=== PATIENT | female | born 1930 | race Caucasian/White ===

== ENCOUNTER 2017-10-08 10:12 | Emergency (ER) | payer MEDICARE, BC, MEDICAID ==
[2017-10-08] MEDS ORDERED: ACETAMINOPHEN 325 MG TABLET PO ONE (10:52)
--- NOTE | 2017-10-08 11:33 | ER Document Report ---
ED Neck/Back Problem - General Chief Complaint: Back Pain Stated Complaint: BACK PAIN Time Seen by Provider: 10/08/17 10:51 Notes: The patient is a 87-year-old female, past medical history chronic back pain, presents with mild lower back pain for a few days after she tried to open the blinds in her house the wrong way. She called her orthopedic surgeon has an appointment next week. She is taking Tylenol with some relief of her symptoms, but she is concerned because now she is having some tingling down her right leg. She denies change in bowel or bladder, difficulty walking, fevers, abdominal pain or saddle anesthesia. TRAVEL OUTSIDE OF THE [place] IN LAST 30 DAYS: No - Related Data Allergies/Adverse Reactions: No Known Allergies Allergy (Verified 02/08/15 19:01) Past Medical History - General Information source: Patient - Social History Smoking Status: Never Smoker Chew tobacco use (# tins/day): No Frequency of alcohol use: None Drug Abuse: None Family History: Reviewed & Not Pertinent Patient has suicidal ideation: No Patient has homicidal ideation: No - Past Medical History Cardiac Medical History: Reports: Hx Heart Attack - stents, Hx Hypercholesterolemia Renal/ Medical History: Denies: Hx Peritoneal Dialysis Past Surgical History: Reports: Hx Cardiac Surgery - stents placed, Hx Orthopedic Surgery - Immunizations Immunizations up to date: Yes Hx Diphtheria, Pertussis, Tetanus Vaccination: Yes Review of Systems - Review of Systems Notes: REVIEW OF SYSTEMS: CONSTITUTIONAL: -fevers, -chills EENT: -eye pain, -difficulty swallowing, -nasal congestion CARDIOVASCULAR: -chest pain, -syncope. RESPIRATORY: -cough, -SOB GASTROINTESTINAL: -abdominal pain, -nausea, -vomiting, -diarrhea GENITOURINARY: -dysuria, -hematuria MUSCULOSKELETAL: +back pain, -neck pain SKIN: -rash or skin lesions. HEMATOLOGIC: -easy bruising or bleeding. LYMPHATIC: -swollen, enlarged glands. NEUROLOGICAL: -altered mental status or loss of consciousness, -headache, - neurologic symptoms PSYCHIATRIC: -anxiety, -depression. ALL OTHER SYSTEMS REVIEWED AND NEGATIVE. Physical Exam - Vital signs Vitals: Temp Pulse Resp BP Pulse Ox 98.0 F 81 16 137/65 H 94 10/08/17 10:32 10/08/17 10:32 10/08/17 10:32 10/08/17 10:32 10/08/17 10:32 - Notes Notes: PHYSICAL EXAMINATION: GENERAL: Well-appearing, well-nourished and in no acute distress. HEAD: Atraumatic, normocephalic. EYES: Pupils equal round and reactive to light, extraocular movements intact, sclera anicteric, conjunctiva are normal. ENT: nares patent, oropharynx clear without exudates. Moist mucous membranes. NECK: Normal range of motion, supple without lymphadenopathy LUNGS: Breath sounds clear to auscultation bilaterally and equal. No wheezes rales or rhonchi. HEART: Regular rate and rhythm without murmurs ABDOMEN: Soft, nontender, normoactive bowel sounds. No guarding, no rebound. No masses appreciated. EXTREMITIES: Normal range of motion, no pitting or edema. No cyanosis. Strong distal pulses. BACK: No midline tenderness. No parapsinal or lower back tenderness. NEUROLOGICAL: Cranial nerves grossly intact. Normal speech, normal gait. Normal sensory and motor exams. PSYCH: Normal mood, normal affect. SKIN: Warm, Dry, normal turgor, no rashes or lesions noted. Course - Re-evaluation Re-evalutation: Patient with a mild exacerbation of her chronic back pain. She has an appointment with her orthopedic surgeon next week. Instructed her about safe medications due to her age and she understands. There are no red flag signs for low back pain at this time she is able to ambulate. - Vital Signs Vital signs: Temp Pulse Resp BP Pulse Ox 97.9 F 77 18 131/70 H 96 10/08/17 11:52 10/08/17 11:52 10/08/17 11:52 10/08/17 11:52 10/08/17 11:52 Discharge - Discharge Clinical Impression: Chronic back pain Qualifiers: Back pain location: low back pain Back pain laterality: unspecified Sciatica presence: without sciatica Qualified Code(s): M54.5 - Low back pain Condition: Stable Disposition: HOME, SELF-CARE Additional Instructions: Take 500 mg Tylenol every 4 hours to help with your back pain. If this doesn't work, use the Voltaren gel to help with any muscle aches. If this does not work and you can pinpoint a particular area that hurts, then you can use the Lidocaine patch. If this fails, then use Naprosyn 250 mg every 12 hours as needed. Follow-up with your orthopedic surgeon as scheduled next week. Return to the ER if you have any worsening symptoms or any other concerns. LOW BACK PAIN: Three out of every four people will have an episode of disabling back pain during their lifetime. Most commonly the pain is due to straining of the muscles and ligaments in the low back. Usual treatment includes: (1) Rest on a firm surface. Avoid lying on your stomach. (2) Ice pack the painful area. After a few days, gentle heat may be used intermittently to relax the area, or ice packs can be continued. (3) Medication may be needed -- muscle relaxers and antiinflammatory medicines are commonly used. (4) As the back improves, exercises are prescribed to strengthen the back and abdominal muscles. Your doctor will advise you on the proper care for your back at each stage in your recovery. You may be better in a few days -- or healing may take several weeks. If new symptoms of a "herniated disc" (radiation of pain, numbness, or tingling down the back of the leg or weakness in the leg) occur, you should be re-examined. Further testing may be necessary. MUSCLE RELAXERS: Muscle relaxing medications are usually prescribed for acute muscle spasm or injury to the neck and back. They are often combined with antiinflammatory pain medication for increased relief. You may stop the muscle relaxer when the pain and stiffness have improved. Start the medication again if spasms recur. Muscle relaxers may cause drowsiness, especially with the first dose. Do not operate machinery or drive while under the effects of the medication. Most muscle relaxers last up to 24 hours. Do not combine the medication with alcohol. ICE PACKS: Apply ice packs frequently against the painful area. Many different schedules are recommended, such as "20 minutes on, 20 minutes off" or "one hour ice, two hours rest." If you need to work, you may need to go longer between ice treatments. You should plan to have the area ice packed AT LEAST one fourth of the time. The ice should be applied over the wrap, tape, or splint, or over a layer of cloth -- not directly against the skin. Some ice bags have a built-in cloth and can be put directly on the skin. WARM PACKS: After approximately two days, apply gentle heat (such as a heating pad or hot water bottle) for about 20 to 30 minutes about every two hours -- at least four times daily. Warmth and elevation will help you make a more rapid recovery , and will ease the pain considerably. Do not use HOT heat, and never apply heat for longer than 30 minutes. The continuous heat can invisibly damage skin and muscles -- even when no burn is seen on the surface. Damaged muscles can make you MORE sore. FOLLOW-UP CARE: If you have been referred to a physician for follow-up care, call the physician s office for an appointment as you were instructed or within the next two days. If you experience worsening or a significant change in your symptoms, notify the physician immediately or return to the Emergency Department at any time for re-evaluation. Prescriptions: Diclofenac Sodium [Voltaren] 100 gm TP Q8H PRN #100 gel..gram. PRN Reason: Lidocaine [Lidoderm 5% (700 mg) Transdermal Patch] 1 patch TP DAILY #10 adh..patch Forms: Elevated Blood Pressure Referrals: MISAEL MACE FNP [Primary Care Provider] - Follow up as needed
[2017-10-08 11:53] VITALS: BP 131/70
== END 2017-10-08 11:53 | disposition home or self-care (01) ==
LOC: ER 10:12
DX: G89.29 Other chronic pain (principal); M54.5 Low back pain; E78.00 Pure hypercholesterolemia, unspecified; I25.2 Old myocardial infarction
CPT/HCPCS: 99283

== ENCOUNTER → 2018-05-26 | Outpatient (CLI) | payer MEDICARE, BC, MEDICAID ==
--- NOTE | 2018-05-26 16:07 | WOMENS IMAGING REPORT ---
EXAM DESCRIPTION: 3D SCREENING MAMMO BILAT COMPLETED DATE/TIME: 05/26/2018 2:25 pm REASON FOR STUDY: BILATERAL SCREENING MAMMO 3D/Z12.31 Z12.31 ENCNTR SCREEN MAMMOGRAM FOR MALIGNANT NEOPLASM OF RADHA COMPARISON: [id number] TECHNIQUE: Standard craniocaudal and mediolateral oblique views of each breast recorded using digita l acquisition and breast tomosynthesis. LIMITATIONS: None. FINDINGS: Findings present which are benign by mammographic criteria. No suspicious masses, calcifi cations or architectural distortion. Pertinent benign findings: Stable calcifications. Read with the assistance of CAD. .[facility] - R2 Cenova Version 1.3 .[facility] Imaging - R2 Cenova Version 1.3 .[facility] - R2 Cenova Version 2.4 .[facility] [place] - R2 Cenova Version 2.4 .[facility] - R2 M1 Armor Crewman Version 9.2 Benign mammographic findings may include one or more of the following: Smooth masses, popcorn/rim/co arse calcifications, asymmetries, post-procedure changes, and lesions with long-standing stability. IMPRESSION: BENIGN MAMMOGRAPHIC FINDINGS. BIRADS 2 BREAST DENSITY: b. There are scattered areas of fibroglandular density. BIRAD: 2 BENIGN FINDING(S) RECOMMENDATION: RECOMMENDATION: ROUTINE SCREENING COMMENT: The patient has been notified of the results by letter per SA requirements. Additional no tification policies are in place for contacting patient with suspicious or incomplete findings. Quality ID #[id number]: The [employer] recommends an annual screening mammogram for women aged 40 years or over. This facility utilizes a reminder system to ensure that all patients receive reminder letters, and/or direct phone calls for appointments. This includes reminders for routine scr eening mammograms, diagnostic mammograms, or other Breast Imaging Interventions when appropriate. Th is patient will be placed in the appropriate reminder system. The [employer] (ACR) has developed recommendations for screening MRI of the breast s in certain patient populations, to be used in conjunction with mammography. Breast MRI surveillanc e may be appropriate for women with more than 20% lifetime risk of developing breast cancer as deter mined by genetic testing, significant family history of the disease, or history of mantle radiation f or Hodgkins Disease. ACR Practice Guidelines 2008. DBT Technology DBT is a type of tomographic mammography. With conventional mammography, overlapping breast tissue ma y make lesions difficult to detect, even with good compression. DBT uses an x-ray tube that rotates a round the breast, taking images at different angles. These images are then combined to create thin sl ices of the breast that the radiologist can view as a 3D reconstruction. The [employer] unit can perform full-field digital mammograms (2D imaging); or DBT (3D imaging); or both, in a combination mode that quickly performs both the mammogram and the tomosynthesis scan while the breast is still compressed. PQRS 6045F: Fluoroscopic imaging is not utilized for breast tomosynthesis. TECHNICAL DOCUMENTATION: FINDING NUMBER: (1) ASSESSMENT: (1) JOB ID: [id number] [employer]- All Rights Reserved Reading location - IP/workstation name: [email or web address]
== END ==
LOC: WI 13:35
PROVIDERS: ATTEND Nurse Practitioner
DX: Z12.31 Encounter for screening mammogram for malignant neoplasm of breast (principal)
CPT/HCPCS: 77063; 77067

== ENCOUNTER 2019-03-28 20:03 | Observation (INO) | payer MEDICARE, BC, MEDICAID ==
--- NOTE | 2019-03-28 20:22 | ER Document Report ---
ED General - General Stated Complaint: DIZZINESS,UNEQUAL PUPILS Time Seen by Provider: 03/28/19 20:09 Notes: Patient is an 88-year-old female that comes to the emergency department for chief complaint of an episode that started about 1900 where she suddenly felt very lightheaded and unsteady on her feet. She states sitting down now she has no current symptoms, she denies focal numbness or weakness, she denies visual changes, she denies headache. She denies chest pain, shortness of breath, palpitations, nausea or vomiting. She is not on a blood thinner. She recently was started on tizanidine as a muscle relaxant for her back. She comes from home by EMS. She denies injury. Past medical history includes hypertension, hyperlipidemia, and she is on Lasix 20 mg daily, tramadol, and baby aspirin daily. She states she has not taken the baby aspirin recently. TRAVEL OUTSIDE OF THE [place] IN LAST 30 DAYS: No - Related Data Allergies/Adverse Reactions: No Known Allergies Allergy (Verified 03/28/19 22:22) Past Medical History - General Information source: Patient, Relative - daughter - Social History Smoking Status: Never Smoker Frequency of alcohol use: None Drug Abuse: None Lives with: Family Family History: Reviewed & Not Pertinent - Past Medical History Cardiac Medical History: Reports: Hx Heart Attack - stents, Hx Hypercholesterolemia Renal/ Medical History: Denies: Hx Peritoneal Dialysis Past Surgical History: Reports: Hx Cardiac Surgery - stents placed, Hx Orthopedic Surgery - Immunizations Immunizations up to date: Yes Hx Diphtheria, Pertussis, Tetanus Vaccination: Yes Review of Systems - Review of Systems Constitutional: See HPI EENT: No symptoms reported Cardiovascular: See HPI Respiratory: No symptoms reported Gastrointestinal: No symptoms reported Genitourinary: No symptoms reported Female Genitourinary: No symptoms reported Musculoskeletal: No symptoms reported Skin: No symptoms reported Hematologic/Lymphatic: No symptoms reported Neurological/Psychological: See HPI Physical Exam - Vital signs Vitals: Temp Pulse Resp BP Pulse Ox 97.8 F 85 19 126/85 H 94 03/28/19 20:03 03/28/19 20:03 03/28/19 20:03 03/28/19 20:03 03/28/19 20:03 - Notes Notes: GENERAL: Alert, interacts well. No acute distress. HEAD: Normocephalic, atraumatic. EYES: Pupils unequal (left is small but reactive, right is about twice the size but reactive). Extraocular movements intact. ENT: Oral mucosa moist, tongue midline. Oropharynx unremarkable. Airway patent. Nares patent, no nasal septal hematoma, TM's intact. NECK: Full range of motion. Supple. Trachea midline. LUNGS: Clear to auscultation bilaterally, no wheezes, rales, or rhonchi. No respiratory distress. HEART: Regular rate and rhythm. No murmur ABDOMEN: Soft, non-tender. Non-distended. EXTREMITIES: Moves all 4 extremities spontaneously. No edema, normal radial and dorsalis pedis pulses bilaterally. No cyanosis. BACK: no cervical, thoracic, lumbar midline tenderness. No saddle anesthesia, normal distal neurovascular exam. NEUROLOGICAL: Alert and oriented x3. Normal speech. Cranial nerves II through XII grossly intact. Patient can ambulate but she is unsteady. She does not have lateralizing or fall to one side however. Patient complains of dizziness when she stands. PSYCH: Normal affect, normal mood. SKIN: Warm, dry, normal turgor. No rashes or lesions noted. Course - Re-evaluation Re-evalutation: Patient complains of dizziness and unsteadiness when she stands. This is new for her. She is somewhat unsteady but she does not fall to one side. She can ambulate with assistance. She does not have localized neurological abnormality on my exam. However she does have unequal pupils with the right greater than the left. Daughter states she sees her all the time and this is new. Patient is unaware of this finding. She denies going to the risk officer or drying machine operator recently, at least not within the past month. She denies trauma. Chest x-ray, EKG, CBC, chemistry, troponin, coagulation studies without acute findings. CAT scan of the head unremarkable. Discussed with patient and daughter at bedside. Because of her easiness, unsteadiness, and reportedly new unequal pupils I discussed with Dr. Villegas and I will discuss with hospitalist for admission for MRI and additional evaluation. They state appreciation and agreement. Discussed with Dr. Lucas, patient will be admitted to [facility] observation. - Vital Signs Vital signs: Temp Pulse Resp BP Pulse Ox 97.8 F 61 21 H 117/60 95 03/28/19 20:03 03/29/19 02:00 03/29/19 00:31 03/29/19 00:31 03/29/19 00:31 - Laboratory Result Diagrams: 03/28/19 20:18 03/28/19 20:18 Laboratory results interpreted by me: 03/28/19 03/28/19 03/28/19 20:18 20:18 22:25 RDW 14.8 H Est GFR (MDRD) Non-Af 57 L Glucose 128 H Creatine Kinase 24 L Urine Blood SMALL H Ur Leukocyte Esterase LARGE H - EKG Interpretation by Me Additional EKG results interpreted by me: EKG shows sinus rhythm at a rate of 77, QTC of 417, normal axis, no T wave inversions or ST segment changes in consecutive leads. Discharge - Discharge Clinical Impression: Anisocoria, Lightheadedness, Imbalance Condition: Stable Disposition: ADMITTED OBSERVATION Admitting Provider: Shayy (Hospitalist) Unit Admitted: [facility]
[2019-03-28 20:26] LABS: ABSOLUTE EOSINOPHILS # (AUTO) 0.2 10^3/uL (0.0-0.6); ABSOLUTE MONOCYTES (AUTO) 0.5 10^3/uL (0.1-1.4); ABSOLUTE NEUT (AUTO) 4.8 10^3/uL (1.7-8.2); BASOPHILS % (AUTO) 0.5 % (0-2); EOSINOPHILS % (AUTO) 3.2 % (0-6); HEMATOCRIT 41.2 % (36.0-47.0); HEMOGLOBIN 13.9 g/dL (12.0-15.5); LYMPHOCYTES % (AUTO) 26.1 % (13-45); MEAN CORPUSCULAR HEMOGLOBIN 31.4 pg (27.0-33.4); MEAN CORPUSCULAR HGB CONC 33.9 g/dL (32.0-36.0); MEAN CORPUSCULAR VOLUME 93 fl (80-97); PLATELET COUNT 179 10^3/uL (150-450); RED BLOOD COUNT 4.44 10^6/uL (3.72-5.28); RED CELL DISTRIBUTION WIDTH 14.8 % (11.5-14.0); SEGMENTED NEUTROPHILS % (AUTO) 63.2 % (42-78); TOTAL CELLS COUNTED % (AUTO) 100 %; WHITE BLOOD COUNT 7.5 10^3/uL (4.0-10.5)
[2019-03-28 20:34] LABS: INTERNATIONAL RATION (INR) 1.06; PROTHROMBIN TIME 13.8 SEC (11.4-15.4)
[2019-03-28 20:35] LABS: PARTIAL THROMBOPLASTIN TIME 27.2 SEC (23.5-35.8)
[2019-03-28 20:51] LABS: ALBUMIN 3.6 g/dL (3.5-5.0); ALKALINE PHOSPHATASE 107 U/L (38-126); ANION GAP 6 (5-19); ASPARTATE AMINO TRANSFERASE 20 U/L (14-36); BILIRUBIN,DIRECT 0.1 mg/dL (0.0-0.4); BILIRUBIN,TOTAL 1.2 mg/dL (0.2-1.3); BLOOD UREA NITROGEN 12 mg/dL (7-20); CALCIUM 9.5 mg/dL (8.4-10.2); CARBON DIOXIDE 30 mmol/L (22-30); CHLORIDE 104 mmol/L (98-107); CREATINE KINASE 24 U/L (30-135); GLUCOSE 128 mg/dL (75-110); POTASSIUM 3.8 mmol/L (3.6-5.0); TOTAL PROTEIN 6.4 g/dL (6.3-8.2)
--- NOTE | 2019-03-28 21:11 | ER Document Report ---
ED NIH Stroke Scale - NIH Stroke Scale When completed:: Before Alteplase *: 1. NIH scale should be completed with appropriate accompanying assessment tools. *: 2. The NIH should reflect what the patient is capable of doing and should not be coached by the clinician. 1a. Level of Consciousness: 0=Alert;keenly responsive -: 1=Drowsy -: 2=Obtunded -: 3=Coma/unresponsive or reflex to noxious stimuli. 1a. Responses: 0 1b. Orientation Questions: a. What month is it? -: b. How old are you? -: 0=Answers both questions correctly. -: 1=Answers one question correctly or patient is intubated or has orotracheal trauma. -: 2=Answers neither question correctly. 1b. Responses: 0 1c. Response to commands: a. Open and close eyes? -: b. Value Analysis Coordinator and release hand? -: Credit is given despite weakness. Demonstration of task is permitted. Substitute command if hands cannot be used. -: 0=Performs both tasks correctly -: 1=Performs one task correctly -: 2=Performs neither task correctly 1c. Responses: 0 2. Gaze: Establish eye contact and instruct patient to "Follow my finger" -: 0=Normal -: 1=Partial gaze palsy. Gaze is abnormal in one or both eyes, but where forced deviation or total gaze paresis is not present. -: 2=Forced deviation or total gaze paresis. 2. Responses: 0 3. Visual Caruso: Sees fingers in all four quadrants. -: 0=No visual loss. -: 1=Partial hemianopsia. -: 2=Complete hemianopsia. -: 3=Bilateral hemianopsia (including Cortical blindness) 3. Responses: 0 4. Facial Movement: Instruct patient to: -: a. Show me your teeth -: b. Raise your eyebrows -: c. Close your eyes -: d. Smile -: 0=Normal symmetrical movement -: 1=Minor paralysis (flattened nasolabial fold, asymmetry on smiling). -: 2=Partial paralysis (total or near total paralysis of lower face). -: 3=Complete paralysis of upper and lower face 4. Responses: 0 5. Motor functions (left arm): Alternate sides and extend each arm with palms down (90 degrees if sitting or 45 degrees for supine). -: 0=No drift;limb holds for full 10 seconds. -: 1=Drift; limb holds but drifts down before full 10 seconds, but does not hit bed. -: 2=Some effort against gravity; limb cannot get to or maintain position. -: 3=No effort against gravity; limb falls. -: 4=No movement. -: UN=Amputation, joint fusion, explain in comments. 5. Responses (left arm): 0 5. Motor Functions (right arm): Alternate sides and extend each arm with palms down (90 degrees if sitting or 45 degrees for supine). -: 0=No drift;limb holds for full 10 seconds. -: 1=Drift; limb holds but drifts down before full 10 seconds, but does not hit bed. -: 2=Some effort against gravity; limb cannot get to or maintain position. -: 3=No effort against gravity; limb falls. -: 4=No movement. -: UN=Amputation, joint fusion, explain in comments. 5. Responses (right arm): 0 6. Motor Functions (left leg): With patient lying supine, alternate sides and extend each leg (30 degrees always while supine). -: 0=No drift, leg holds position for full 5 seconds -: 1=Drift; leg falls before full 5 seconds but does not hit bed. -: 2=Some effort against gravity, leg falls to bed but some effort against gravity. -: 3=No effort against gravity, leg falls to bed immediately. -: 4=No movement. -: UN=Amputation, joint fusion; explain in comments. 6. Responses (left leg): 0 6. Motor Functions (right leg): With patient lying supine, alternate sides and extend each leg (30 degrees always while supine). -: 0=No drift, leg holds position for full 5 seconds -: 1=Drift; leg falls before full 5 seconds but does not hit bed. -: 2=Some effort against gravity, leg falls to bed but some effort against gravity. -: 3=No effort against gravity, leg falls to bed immediately. -: 4=No movement. -: UN=Amputation, joint fusion; explain in comments. 6. Responses (right leg): 0 7. Limb Ataxia: With eyes open instruct patient to: -: a. "Touch your finger to your nose". -: b. "Touch your heel to your oliveira" -: 0=Absent -: 1=Present in one limb. -: 2=Present in two limbs. -: UN=Amputation or joint fusion; explain in comments. 7. Responses: 0 8. Sensory: Test sensation using pinprick or noxious stimuli. Test as many body parts as possible. -: 0=Normal;no sensory loss -: 1=Mile to moderate sensory loss (patient feels pin prick but is less sharp on affected side). -: 2=Severe or total sensory loss. 8. Responses: 0 9. Best Language: Instruct patient to: -: a. "Describe what you see in this picture." -: b. "Name the items in this picture." -: c. "Read these sentences." -: 0=No aphasia, normal -: 1=Mild to moderate aphasia. -: 2=Severe aphasia -: 3=Mute, global aphasia, no usable speech or auditory comprehension. 9. Responses: 0 10. Articulation, Dysarthia: Instruct patient to: -: "Read these words" or "Repeat these words" -: 0=Normal -: 1=Mild to moderate; patient may slur some words but can be understood without difficulty. -: 2=Severe; patients speech so slurred as to be unintelligible in the absence of dysphasia. -: UN=Intubated or other physical barrier, explain in comments. 10. Responses: 0 11. Extinction or inattention: 0=No abnormality -: 1= Visual, tactile, auditory, spatial, or personal inattention or extinction to bilateral simulation in one or the sensory modalities. -: 2=Profound johana-inattention or johana-inattention to more than one modality; does not recognize own hand. 11. Responses: 0 Total Score: 0
[2019-03-28 21:23] LABS: CREATINE KINASE MB < 0.22 ng/mL (<4.55)
[2019-03-28 21:24] LABS: TROPONIN I < 0.012 ng/mL
--- NOTE | 2019-03-28 21:31 | RADIOLOGY REPORT (SQ) ---
EXAM DESCRIPTION: CT HEAD WITHOUT IV CONTRAST COMPLETED DATE/TME: 03/28/2019 20:15 CLINICAL HISTORY: 88 years, Female, unsteady gait, right pupil greater than left COMPARISON: None. TECHNIQUE: Noncontrast CT of head was performed. Coronal and sagittal reformations were created. Images stored on PACS. All CT scanners at this facility use dose modulation, iterative reconstruction, and/or weight based dosing when appropriate to reduce radiation dose to as low as reasonably achievable (ALARA). [facility]: Dose Right [facility]: CareDose [facility]: Dose Right [facility]: Teradose 4D [facility]: [id number] LIMITATIONS: None. FINDINGS: Evaluation of the brain parenchyma reveals mild periventricular and patchy subcortical white matter low attenuation. No acute intracranial hemorrhage, mass effect, or extra-axial fluid is seen. The ventricles and sulcal spaces are mildly enlarged. Globes and orbits show no acute abnormality. The nasal septum is mildly deviated towards the right. Otherwise, paranasal sinuses and mastoid air cells are clear. No depressed skull fractures. Calcifications are evident about the parasellar carotid arteries. IMPRESSION: No acute intracranial abnormality. Mild chronic microvascular ischemic change and generalized atrophy. TECHNICAL DOCUMENTATION: Quality ID # [id number]: Final reports with documentation of one or more dose reduction techniques (e.g., Automated exposure control, adjustment of the mA and/or kV according to patient size, use of iterative reconstruction technique) copyright 2011 [employer]- All Rights Reserved
--- NOTE | 2019-03-28 21:33 | RADIOLOGY REPORT (SQ) ---
EXAM DESCRIPTION: XR CHEST 1 VIEW COMPLETED DATE/TME: 03/28/2019 20:15 CLINICAL HISTORY: 88 years, Female, CVA workup COMPARISON: None. NUMBER OF VIEWS: One TECHNIQUE: Single frontal view of the chest was obtained portably LIMITATIONS: None. FINDINGS: Cardiac and mediastinal contours are normal in appearance. Bandlike opacity is noted about the left lung base, likely atelectasis or scar. Suspect calcified granuloma located within the right lung base. Lungs are otherwise clear. No pleural effusion or pneumothorax. A few compression deformities are noted about the mid to lower thoracic vertebral bodies, age indeterminate and incompletely assessed on this single frontal radiograph. IMPRESSION: No acute disease within the chest. Compression deformities involving a few mid to lower thoracic vertebral bodies, incompletely assessed on this frontal projection of the chest. copyright 2010 [email or web address]- All Rights Reserved
[2019-03-28 22:42] LABS: APPEARANCE,URINE SLIGHTLY-CLOUDY; BILIRUBIN,URINE NEGATIVE (NEGATIVE); COLOR,URINE YELLOW; GLUCOSE, URINE NEGATIVE (NEGATIVE); KETONES,URINE NEGATIVE (NEGATIVE); LEUKOCYTE ESTERASE,URINE LARGE (NEGATIVE); NITRITE,URINE NEGATIVE (NEGATIVE); PROTEIN,URINE NEGATIVE (NEGATIVE); URINE SPECIFIC GRAVITY 1.014; UROBILINOGEN,URINE NEGATIVE mg/dL (<2.0)
[2019-03-29] MEDS ORDERED: ACETAMINOPHEN 325 MG TABLET PO PRN (00:43)
[2019-03-29] MEDS ORDERED: DOCUSATE SODIUM 100 MG CAPSULE PO PRN (00:43)
[2019-03-29] MEDS ORDERED: TEMAZEPAM 15 MG CAPSULE PO PRN (00:43)
[2019-03-29] MEDS ORDERED: MAGNESIUM HYDROXIDE SUSP 30 ML UDCUP PO PRN (00:43)
[2019-03-29] MEDS ORDERED: ONDANSETRON HCL INJ/PF 4 MG/2 ML SDV IV PRN (00:43)
[2019-03-29] MEDS ORDERED: ONDANSETRON 4 MG TAB.RAPDIS PO PRN (00:43)
--- NOTE | 2019-03-29 00:43 | PDOC H&P ---
History of Present Illness Admission Date/PCP: 03/28/19 23:11 ALVA IBARRA Patient complains of: Dizziness History of Present Illness: JENS GOLDSTEIN is a 88 year old female who presented to the emergency room with the acute onset of dizziness at 7 PM on the evening of admission. She admits to the sudden onset of a dizzy sensation when she started to arise from her chair, that has persisted since onset. She describes a dizzy sensation as a feeling of being off balance as if she were going to fall but does not feel lightheaded or as if she might lose consciousness. The sensation is relieved by rest and holding still and worsened by sitting up forward or standing. She denies acc ompanying or associated signs and symptoms. She denies prior similar episodes and has not identified any other aggravating or ameliorating factors for her dizziness. In the emergency room she was found to have a negative CT scan of the head. Because of persistence of her symptoms patient was admitted to observation status for further evaluation and treatment. Past Medical History Cardiac Medical History: Reports: Coronary Artery Disease, Myocardial Infarction - stents, Hyperlipidema, Hypertension Denies: Atrial Fibrillation, Congestive Heart Failure, DVT, Pulmonary Embolism Pulmonary Medical History: Denies: Asthma, Chronic Obstructive Pulmonary Disease (COPD) EENT Medical History: Reports: Cataracts, Eyes - Glaucoma Denies: Ears - Hearing aids Neurological Medical History: Denies: Hemorrhagic CVA, Ischemic CVA, Seizures Endocrine Medical History: Denies: Diabetes Mellitus Type 1, Diabetes Mellitus Type 2, Hyperthyroidism, Hypothyroidism, Obesity Renal/ Medical History: Denies: Chronic Kidney Disease, Nephrolithiasis Malignancy Medical History: Reports: None GI Medical History: Denies: Cirrhosis, Crohn's Disease, Hepatitis, Ulcerative Colitis Musculoskeltal Medical History: Reports: Arthritis - 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 Denies: Fibromyalgia, Gout Skin Medical History: Denies: Eczema, Psoriasis Psychiatric Medical History: Denies: Alcohol Dependency, Substance Abuse, Tobacco Dependency Traumatic Medical History: Reports: None Hematology: Denies: Anemia, Bleeding Tendencies Infectious Medical History: Reports: None Past Surgical History Past Surgical History: Reports: Cardiac Catheterization, Coronary Stent - X 4, Hip Replacement, Orthopedic Surgery - Lumbar disc removal and replacement X 2, left femur fx repair, Other - Glaucoma surgery, bilateral cataract surgery Social History Information Source: Patient Lives with: Family Smoking Status: Former Smoker Frequency of Alcohol Use: None Hx Recreational Drug Use: No Drugs: None Hx Prescription Drug Abuse: No - Advance Directive Resuscitation Status: Full Code Surrogate healthcare decision maker:: Chuyita Gutierrez Family History Family History: Arthritis, CAD, Other - Congestive heart failure, polycythemia, dementia. denies: CVA, DM, Hypertension, Malignancy Parental Family History Reviewed: Yes Children Family History Reviewed: No Sibling(s) Family History Reviewed.: Yes Medication/Allergy Home Medications: Atorvastatin Calcium [Lipitor] 80 mg PO QHS 03/28/19 Cholecalciferol (Vitamin D3) [Vitamin D3 1000 Unit Tablet] 1,000 unit PO DAILY 03/28/19 Furosemide [Lasix 20 mg Tablet] 20 mg PO QAM PRN 03/28/19 Metoprolol Succinate [Toprol Xl 25 mg Tab.sr] 25 mg PO DAILY 03/28/19 Tizanidine HCl 4 mg PO TID 03/28/19 Tramadol HCl [Ultram] 50 mg PO Q6HP PRN 03/28/19 Allergies/Adverse Reactions: No Known Allergies Allergy (Verified 03/28/19 22:22) Review of Systems Constitutional: ABSENT: chills, fever(s), headache(s) Eyes: ABSENT: visual disturbances, other - Ocular pain Ears: ABSENT: hearing changes, other - Ear pain Nose, Mouth, and Throat: ABSENT: mouth pain, sore throat Cardiovascular: ABSENT: chest pain, palpitations Respiratory: ABSENT: cough, dyspnea Gastrointestinal: ABSENT: abdominal pain, constipation, diarrhea, nausea, vomiting Genitourinary: ABSENT: dysuria, hematuria Integumentary: ABSENT: diaphoresis, pruritus, rash Neurological: PRESENT: dizziness, vertigo. ABSENT: confusion, convulsions, focal weakness, memory loss, syncope Psychiatric: ABSENT: anxiety, depression Endocrine: ABSENT: cold intolerance, heat intolerance Hematologic/Lymphatic: ABSENT: easy bleeding, easy bruising Allergic/Immunologic: ABSENT: seasonal rhinorrhea Physical Exam Vital Signs: Temp Pulse Resp BP Pulse Ox 18 133/59 H 94 03/28/19 22:01 03/28/19 22:01 03/28/19 22:01 General appearance: PRESENT: no acute distress, cooperative Head exam: PRESENT: atraumatic, normocephalic Eye exam: PRESENT: conjunctiva pink, EOMI, nystagmus - Mild nystagmus with fast components to the right and upward, scleral icterus. ABSENT: conjunctival injection, PERRLA - Mild anisocoria noted right pupil is 1 to 2 mm larger than left status post cataract excision and lens reimplantation as well as other eye surgeries Mouth exam: PRESENT: dry mucosa, neck supple Neck exam: ABSENT: thyromegaly, tracheal deviation Respiratory exam: PRESENT: clear to auscultation benson, symmetrical, unlabored Cardiovascular exam: PRESENT: RRR. ABSENT: clicks, gallop, rubs Pulses: PRESENT: normal radial pulses, normal dorsalis pedis pul Vascular exam: PRESENT: normal capillary refill. ABSENT: pallor GI/Abdominal exam: PRESENT: normal bowel sounds, soft Rectal exam: PRESENT: deferred Extremities exam: ABSENT: joint swelling, pedal edema Musculoskeletal exam: ABSENT: deformity, dislocation Neurological exam: PRESENT: alert, oriented to person, oriented to place, oriented to time, oriented to situation, CN II-XII grossly intact - With the exception of anisocoria as noted above. ABSENT: motor sensory deficit Psychiatric exam: PRESENT: appropriate affect, normal mood Skin exam: PRESENT: dry, intact, warm. ABSENT: jaundice, rash, urticaria Results Laboratory Results: 03/28/19 20:18 03/28/19 20:18 03/28/19 03/28/19 03/28/19 20:18 20:18 22:25 WBC 7.5 RBC 4.44 Hgb 13.9 Hct 41.2 MCV 93 MCH 31.4 MCHC 33.9 RDW 14.8 H Plt Count 179 Seg Neutrophils % 63.2 Sodium 140.4 Potassium 3.8 Chloride 104 Carbon Dioxide 30 Anion Gap 6 BUN 12 Creatinine 0.93 Est GFR ( Amer) > 60 Glucose 128 H Calcium 9.5 Total Bilirubin 1.2 AST 20 Alkaline Phosphatase 107 Total Protein 6.4 Albumin 3.6 Urine Color YELLOW Urine Appearance SLIGHTLY-CLOUDY Urine pH 5.0 Ur Specific [place] 1.014 Urine Protein NEGATIVE Urine Glucose (UA) NEGATIVE Urine Ketones NEGATIVE Urine Blood SMALL H Urine Nitrite NEGATIVE Ur Leukocyte Esterase LARGE H Urine WBC (Auto) 74 Urine RBC (Auto) 5 03/28/19 03/28/19 20:18 20:18 Creatine Kinase 24 L CK-MB (CK-2) < 0.22 Troponin I < 0.012 Impressions: Chest X-Ray 03/28/19 20:15 IMPRESSION: No acute disease within the chest. Compression deformities involving a few mid to lower thoracic vertebral bodies, incompletely assessed on this frontal projection of the chest. copyright 2010 [employer]- All Rights Reserved Head CT 03/28/19 20:15 IMPRESSION: No acute intracranial abnormality. Mild chronic microvascular ischemic change and generalized atrophy. TECHNICAL DOCUMENTATION: Quality ID # 436: Final reports with documentation of one or more dose reduction techniques (e.g., Automated exposure control, adjustment of the mA and/or kV according to patient size, use of iterative reconstruction technique) copyright 2010 [employer]- All Rights Reserved Assessment and Plan - Diagnosis (1) Vertigo Is this a current diagnosis for this admission?: Yes Plan: Patient will be placed in observation status and an MRI of the head without contrast to be performed in the morning. In the interim patient will be treated with a transdermal scopolamine patch to make an effort at alleviating her vertigo. Neurochecks will be performed every 4 hours. (2) Hypertension Qualifiers: Hypertension type: essential hypertension Qualified Code(s): I10 - Essential (primary) hypertension Is this a current diagnosis for this admission?: Yes Plan: Patient will be continued on her usual antihypertensive medications and her blood pressure will be checked on a regular basis throughout her hospital course.. (3) Hyperlipidemia Qualifiers: Hyperlipidemia type: unspecified Qualified Code(s): E78.5 - Hyperlipidemia, unspecified Is this a current diagnosis for this admission?: Yes Plan: A lipid profile will be obtained to assess the patient's current lipid therapy. Patient will be continued on her current therapeutic regiment and a cardiac diet. (4) Coronary artery disease Qualifiers: Coronary Disease-Associated Artery/Lesion type: [place] artery [place] vs. transplanted heart: [place] heart Associated angina: without angina Qualified Code(s): I25.10 - Atherosclerotic heart disease of [place] coronary artery without angina pectoris Is this a current diagnosis for this admission?: Yes Plan: Patient will be continued on her usual cardiac medical regimen. She will be observed on telemetry throughout her hospital course. - Time Time Spent with patient: 35 or more minutes Medications reviewed and adjusted accordingly: Yes Anticipated discharge: Home Within: within 24 hours - Inpatient Certification Based on my medical assessment, after consideration of the patient's comorbidities, presenting symptoms, or acuity I expect that the services needed warrant INPATIENT care.: No I certify that my determination is in accordance with my understanding of Medicare's requirements for reasonable and necessary INPATIENT services [42 CFR 412.3e].: No Medical Necessity: Need Close Monitoring Due to Risk of Patient Decompensation, Need for Neurological Checks, Risk of Complication if Not Cared For in Hospital
[2019-03-29] MEDS ORDERED: FUROSEMIDE 20 MG TABLET PO PRN (00:47)
[2019-03-29] MEDS ORDERED: TRAMADOL HCL 50 MG TABLET PO PRN (00:47)
[2019-03-29 05:30] LABS: CHOLESTEROL 104.04 mg/dL (0-200); TRIGLYCERIDES 86 mg/dL (<150)
[2019-03-29 05:41] LABS: DIRECT LDL 49 mg/dL (<100)
[2019-03-29] MEDS ORDERED: SCOPOLAMINE HYDROBROMIDE 1.5 MG PATCH.TD72 TD ONE (06:00)
[2019-03-29] MEDS: HEPARIN SOD (PORCINE) 5,000 UNIT/ML 1 ML VIAL SUBCUT SCH ×2 (06:30→14:24)
--- NOTE | 2019-03-29 08:15 | EKG REPORT ---
SEVERITY:- NORMAL ECG - SINUS RHYTHM : Confirmed by: Caitlin Barlow MD 29-Mar-2019 08:14:43
[2019-03-29] MEDS ORDERED: FAMOTIDINE 20 MG TABLET PO SCH (10:00)
[2019-03-29] MEDS ORDERED: METOPROLOL SUCCINATE 25 MG TAB.SR.24H PO SCH (10:00)
[2019-03-29] MEDS ORDERED: CHOLECALCIFEROL (D3) 1,000 UNIT (25 MCG) TABLET PO SCH (10:00)
[2019-03-29] MEDS ORDERED: CLOPIDOGREL BISULFATE 75 MG TABLET PO SCH (10:00)
--- NOTE | 2019-03-29 10:12 | RADIOLOGY REPORT (SQ) ---
EXAM DESCRIPTION: MRI HEAD WITHOUT COMPLETED DATE/TIME: 03/29/2019 9:58 am REASON FOR STUDY: acute vertigo E78.5 HYPERLIPIDEMIA, UNSPECIFIED COMPARISON: 02/25/2019 TECHNIQUE: Multiplanar imaging includes non-contrasted T1, T2, FLAIR, and Diffusion with ADC map seq uences. Images stored on PACS. LIMITATIONS: None. FINDINGS: ANATOMY: No anomalies. Normal vascular flow voids. Pituitary fossa normal. CSF SPACES: Normal in size and contour. No hemorrhage. CEREBRUM: A few high-signal intensity lesions scattered throughout the white matter on FLAIR imaging with distribution suggesting chronic micro-vascular ischemic change. Sulci and gyri normal in size a nd contour. No evidence of hemorrhage, mass or extraaxial fluid collection. POSTERIOR FOSSA: No signal alteration. No hemorrhage. No edema, masses or mass effect. Internal ricardo tory canals, cerebello-pontine angles, mastoids normal. DIFFUSION: Negative for acute or sub-acute infarction. ORBITS: No masses. Globes normal. PARANASAL SINUSES: No fluid levels. Mucosa normal. OTHER: No other significant finding. IMPRESSION: MINIMAL MICROVASCULAR ISCHEMIC CHANGE. OTHERWISE NORMAL STUDY. EVIDENCE OF ACUTE STROKE: NO. TECHNICAL DOCUMENTATION: JOB ID: [id number] [employer]- All Rights Reserved Reading location - IP/workstation name: [email or web address]
[2019-03-29 16:08] VITALS: BP 126/85
--- NOTE | 2019-03-29 17:05 | PDOC DISCHARGE SUMMARY ---
General - Admit/Disc Date/PCP Admission Date/Primary Care Provider: 03/28/19 23:11 MISAEL MACE, [employer] Discharge Date: 03/29/19 - Discharge Diagnosis (1) Lightheadedness Is this a current diagnosis for this admission?: Yes Summary: Suspected to be due to combination of her chronic medications along with some pain medication that she received for neck pain. MRI of the brain was normal. Orthostatics were unremarkable. The only time it happens is when she stands up, but she was able to stand up without incident here. 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 It is very subtle with the right eye being slightly more dilated than the left. No one apparently has noticed it before, at least no one is said anything to the family. As previously noted, MRI was negative. (3) Hypertension Is this a current diagnosis for this admission?: Yes Summary: This was well-controlled on her home medications. - Additional Information Resuscitation Status: Full Code Discharge Diet: Cardiac Discharge Activity: Activity As Tolerated, Balance Activity w/Rest, Supervised Activity Home Medications: Atorvastatin Calcium [Lipitor] 80 mg PO QHS 03/28/19 Cholecalciferol (Vitamin D3) [Vitamin D3 1000 Unit Tablet] 1,000 unit PO DAILY 03/28/19 Furosemide [Lasix 20 mg Tablet] 20 mg PO QAMP PRN 03/28/19 Metoprolol Succinate [Toprol Xl 25 mg Tab.sr] 25 mg PO DAILY 03/28/19 Tizanidine HCl 4 mg PO TIDP PRN 03/28/19 Tramadol HCl [Ultram] 50 mg PO Q6HP PRN 03/28/19 Aspirin [Adult Low Dose Aspirin EC] 81 mg PO DAILY 03/29/19 History of Present Illness History of Present Illness: JENS GOLDSTEIN is a 88 year old female who presented to the emergency room with the acute onset of dizziness at 7 PM on the evening of admission. She admits to the sudden onset of a dizzy sensation when she started to arise from her chair, that has persisted since onset. She describes a dizzy sensation as a feeling of being off balance as if she were going to fall but does not feel lightheaded or as if she might lose consciousness. The sensation is relieved by rest and holding still and worsened by sitting up forward or standing. She denies accompanying or associated signs and symptoms. She denies prior similar episodes and has not identified any other aggravating or ameliorating factors for her dizziness. In the emergency room she was found to have a negative CT scan of the head. Because of persistence of her symptoms patient was admitted to observation status for further evaluation and treatment. Hospital Course Hospital Course: MRI of the brain was normal. Her vital signs were excellent. Orthostatic blood pressures did not change very much. She had been given some tramadol and some Zanaflex for some neck pain associated with the condition is being treated as an outpatient. We suspect that this was a combination of some of her usual home medications along with the addition of these 2 new medicines. We held off on her medications here and she was asymptomatic for us. She was cautioned to be very careful with position changes and with use of her medications. She verbalized her understanding. Her labs and examination were reassuring and she was discharged in good condition. Physical Exam Vital Signs: Temp Pulse Resp BP Pulse Ox 98.1 F 68 18 126/85 H 98 03/29/19 16:06 03/29/19 16:06 03/29/19 16:06 03/29/19 16:06 03/29/19 16:06 Intake & Output 03/28/19 03/29/19 03/30/19 06:59 06:59 06:59 Intake Total 100 Balance 100 Weight 51.8 kg General appearance: PRESENT: no acute distress, cooperative Eye exam: PRESENT: other - She had a very subtle anisocoria with the right iris being slightly more dilated than the left, 1 to 2 mm at most Respiratory exam: PRESENT: clear to auscultation benson, symmetrical, unlabored. ABSENT: accessory muscle use, chest wall tenderness, prolonged expiratory phas, rales, rhonchi, tachypnea, wheezes Cardiovascular exam: PRESENT: RRR, +S1, +S2 Pulses: PRESENT: normal carotid pulses Vascular exam: PRESENT: normal capillary refill GI/Abdominal exam: PRESENT: normal bowel sounds, soft. ABSENT: distended, gu arding, rebound, tenderness Extremities exam: ABSENT: clubbing, pedal edema Musculoskeletal exam: PRESENT: normal inspection. ABSENT: deformity Neurological exam: PRESENT: alert, awake, oriented to person, oriented to place, oriented to time, oriented to situation Psychiatric exam: PRESENT: appropriate affect, normal mood Skin exam: PRESENT: dry, warm Results Laboratory Results: 03/28/19 20:18 03/28/19 20:18 03/28/19 03/28/19 03/28/19 20:18 20:18 22:25 WBC 7.5 RBC 4.44 Hgb 13.9 Hct 41.2 MCV 93 MCH 31.4 MCHC 33.9 RDW 14.8 H Plt Count 179 Seg Neutrophils % 63.2 Sodium 140.4 Potassium 3.8 Chloride 104 Carbon Dioxide 30 Anion Gap 6 BUN 12 Creatinine 0.93 Est GFR ( Amer) > 60 Glucose 128 H Calcium 9.5 Total Bilirubin 1.2 AST 20 Alkaline Phosphatase 107 Total Protein 6.4 Albumin 3.6 Triglycerides Cholesterol LDL Cholesterol Direct VLDL Cholesterol HDL Cholesterol Urine Color YELLOW Urine Appearance SLIGHTLY-CLOUDY Urine pH 5.0 Ur Specific [place] 1.014 Urine Protein NEGATIVE Urine Glucose (UA) NEGATIVE Urine Ketones NEGATIVE Urine Blood SMALL H Urine Nitrite NEGATIVE Ur Leukocyte Esterase LARGE H Urine WBC (Auto) 74 Urine RBC (Auto) 5 03/29/19 04:31 WBC RBC Hgb Hct MCV MCH MCHC RDW Plt Count Seg Neutrophils % Sodium Potassium Chloride Carbon Dioxide Anion Gap BUN Creatinine Est GFR ( Amer) Glucose Calcium Total Bilirubin AST Alkaline Phosphatase Total Protein Albumin Triglycerides 86 Cholesterol 104.04 LDL Cholesterol Direct 49 VLDL Cholesterol 17.0 HDL Cholesterol 48 Urine Color Urine Appearance Urine pH Ur Specific [place] Urine Protein Urine Glucose (UA) Urine Ketones Urine Blood Urine Nitrite Ur Leukocyte Esterase Urine WBC (Auto) Urine RBC (Auto) 03/28/19 03/28/19 20:18 20:18 Creatine Kinase 24 L CK-MB (CK-2) < 0.22 Troponin I < 0.012 Impressions: Chest X-Ray 03/28/19 20:15 IMPRESSION: No acute disease within the chest. Compression deformities involving a few mid to lower thoracic vertebral bodies, incompletely assessed on this frontal projection of the chest. copyright 2011 [employer]- All Rights Reserved Head CT 03/28/19 20:15 IMPRESSION: No acute intracranial abnormality. Mild chronic microvascular ischemic change and generalized atrophy. TECHNICAL DOCUMENTATION: Quality ID # 436: Final reports with documentation of one or more dose reduction techniques (e.g., Automated exposure control, adjustment of the mA and/or kV according to patient size, use of iterative reconstruction technique) copyright 2011 [employer]- All Rights Reserved Head MRI 03/29/19 00:00 IMPRESSION: MINIMAL MICROVASCULAR ISCHEMIC CHANGE. OTHERWISE NORMAL STUDY. EVIDENCE OF ACUTE STROKE: NO. Qualifiers - * PATIENT BEING DISCHARGED WITH ANY OF THE FOLLOWING DIAGNOSIS: No Acute Heart Failure - Is this a Heart Failure Patient?: No Plan Time Spent: Greater than 30 Minutes
[2019-03-29] MEDS ORDERED: ATORVASTATIN CALCIUM 80 MG TABLET PO SCH (22:00)
== END 2019-03-29 16:56 | disposition home or self-care (01) ==
LOC: ER 20:03 → EH 23:11 → 3N 03-29 00:54
PROVIDERS: ADMIT Emergency Medicine; ATTEND Emergency Medicine
DX: R42 Dizziness and giddiness (principal); H57.02 Anisocoria; I10 Essential (primary) hypertension; I25.10 Atherosclerotic heart disease of native coronary artery without angina pectoris; H40.9 Unspecified glaucoma; E78.5 Hyperlipidemia, unspecified; H55.00 Unspecified nystagmus; R26.89 Other abnormalities of gait and mobility; I25.2 Old myocardial infarction; Z95.5 Presence of coronary angioplasty implant and graft; Z82.49 Family history of ischemic heart disease and other diseases of the circulatory system; Z82.3 Family history of stroke; Z98.42 Cataract extraction status, left eye; Z96.1 Presence of intraocular lens; R29.700 NIHSS score 0; Z79.82 Long term (current) use of aspirin; Z87.891 Personal history of nicotine dependence; Z79.899 Other long term (current) drug therapy; Z98.890 Other specified postprocedural states; Z79.891 Long term (current) use of opiate analgesic
CPT/HCPCS: 93005; 99285; 36415 ×2; 82553; 82550; 85025; 85610; 85730; 80053; 81001; 84484; 80061; 70551; 71045; 70450; 93010; 97161; G0378; J1644; A9270 ×5

== ENCOUNTER 2019-07-26 15:46 | Observation (INO) | payer MEDICARE, BC, MEDICAID ==
[2019-07-26 16:28] LABS: ABSOLUTE EOSINOPHILS # (AUTO) 0.2 10^3/uL (0.0-0.6); ABSOLUTE LYMPHOCYTES (AUTO) 1.6 10^3/uL (0.5-4.7); ABSOLUTE MONOCYTES (AUTO) 0.5 10^3/uL (0.1-1.4); ABSOLUTE NEUT (AUTO) 3.6 10^3/uL (1.7-8.2); BASOPHILS % (AUTO) 0.6 % (0-2); HEMATOCRIT 41.1 % (36.0-47.0); HEMOGLOBIN 13.9 g/dL (12.0-15.5); LYMPHOCYTES % (AUTO) 27.4 % (13-45); MEAN CORPUSCULAR HEMOGLOBIN 33.4 pg (27.0-33.4); MEAN CORPUSCULAR HGB CONC 33.9 g/dL (32.0-36.0); MEAN CORPUSCULAR VOLUME 99 fl (80-97); MONOCYTES % (AUTO) 8.2 % (3-13); PLATELET COUNT 178 10^3/uL (150-450); RED BLOOD COUNT 4.16 10^6/uL (3.72-5.28); RED CELL DISTRIBUTION WIDTH 16.9 % (11.5-14.0); SEGMENTED NEUTROPHILS % (AUTO) 60.8 % (42-78); TOTAL CELLS COUNTED % (AUTO) 100 %
[2019-07-26 16:48] LABS: ALBUMIN 3.6 g/dL (3.5-5.0); ALKALINE PHOSPHATASE 97 U/L (38-126); ANION GAP 6 (5-19); ASPARTATE AMINO TRANSFERASE 23 U/L (14-36); BILIRUBIN,DIRECT 0.1 mg/dL (0.0-0.4); BILIRUBIN,TOTAL 1.4 mg/dL (0.2-1.3); BLOOD UREA NITROGEN 15 mg/dL (7-20); CALCIUM 9.8 mg/dL (8.4-10.2); CARBON DIOXIDE 33 mmol/L (22-30); CHLORIDE 100 mmol/L (98-107); GLUCOSE 92 mg/dL (75-110); POTASSIUM 4.1 mmol/L (3.6-5.0); TOTAL PROTEIN 6.8 g/dL (6.3-8.2)
[2019-07-26 16:51] LABS: CREATINE KINASE < 20 U/L (30-135)
[2019-07-26 17:00] LABS: CREATINE KINASE MB 0.47 ng/mL (<4.55)
[2019-07-26 17:01] LABS: TROPONIN I < 0.012 ng/mL
[2019-07-26] MEDS ORDERED: NORMAL SALINE 500 ML IV ONE (17:52)
--- NOTE | 2019-07-26 18:05 | ER Document Report ---
ED General - General Chief Complaint: Syncope Stated Complaint: POSSIBLE SYNCOPE Time Seen by Provider: 07/26/19 17:39 Primary Care Provider: MISAEL MACE FNP [Primary Care Provider] - Follow up as needed TRAVEL OUTSIDE OF THE [place] IN LAST 30 DAYS: No - Related Data Allergies/Adverse Reactions: No Known Allergies Allergy (Verified 03/28/19 22:22) Past Medical History - Social History Smoking Status: Never Smoker Family History: Reviewed & Not Pertinent Patient has suicidal ideation: No Patient has homicidal ideation: No - Past Medical History Cardiac Medical History: Reports: Hx Coronary Artery Disease, Hx Heart Attack - x2, Hx Hypercholesterolemia, Hx Hypertension Denies: Hx Atrial Fibrillation, Hx Congestive Heart Failure, Hx DVT, Hx Pulmonary Embolism Pulmonary Medical History: Denies: Hx Asthma, Hx COPD Neurological Medical History: Denies: Hx Seizures Endocrine Medical History: Denies: Hx Diabetes Mellitus Type 1, Hx Diabetes Mellitus Type 2, Hx Hyperthyroidism, Hx Hypothyroidism Renal/ Medical History: Denies: Hx Peritoneal Dialysis GI Medical History: Denies: Hx Cirrhosis, Hx Crohn's Disease, Hx Hepatitis, Hx Ulcerative Colitis Musculoskeletal Medical History: Reports Hx Arthritis - 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, Denies Hx Fibromyalgia, Denies Hx Gout Skin Medical History: Denies Hx Eczema, Denies Hx Psoriasis Psychiatric Medical History: Denies: Hx Depression Infectious Medical History: Denies: Hx Hepatitis Past Surgical History: Reports: Hx Cardiac Catheterization, Hx Cardiac Surgery - stents placed, Hx Coronary Stent - X 4, Hx Orthopedic Surgery - right hip replacement, metal plate in right femur, Other - Glaucoma surgery, bilateral cataract surgery - Immunizations Immunizations up to date: Yes Hx Diphtheria, Pertussis, Tetanus Vaccination: Yes Physical Exam - Vital signs Vitals: Temp Pulse Resp BP Pulse Ox 98 F 87 18 133/68 H 97 07/26/19 16:03 07/26/19 16:03 07/26/19 16:03 07/26/19 16:03 07/26/19 16:03 Course - Vital Signs Vital signs: Temp Pulse Resp BP Pulse Ox 98 F 87 18 133/68 H 97 07/26/19 16:03 07/26/19 16:03 07/26/19 16:03 07/26/19 16:03 07/26/19 16:03 - Laboratory Result Diagrams: 07/26/19 16:10 07/26/19 16:10 Laboratory results interpreted by me: 07/26/19 07/26/19 16:10 16:10 MCV 99 H RDW 16.9 H Carbon Dioxide 33 H Total Bilirubin 1.4 H Creatine Kinase < 20 L Discharge - Discharge Referrals: MISAEL MACE FNP [Primary Care Provider] - Follow up as needed
--- NOTE | 2019-07-26 18:08 | ER Document Report ---
ED General - General Chief Complaint: Syncope Stated Complaint: POSSIBLE SYNCOPE Time Seen by Provider: 07/26/19 17:39 Primary Care Provider: MISAEL MACE FNP [Primary Care Provider] - Follow up as needed TRAVEL OUTSIDE OF THE [place] IN LAST 30 DAYS: No - Related Data Allergies/Adverse Reactions: No Known Allergies Allergy (Verified 03/28/19 22:22) Past Medical History - Social History Smoking Status: Never Smoker Family History: Reviewed & Not Pertinent Patient has suicidal ideation: No Patient has homicidal ideation: No - Past Medical History Cardiac Medical History: Reports: Hx Coronary Artery Disease, Hx Heart Attack - x2, Hx Hypercholesterolemia, Hx Hypertension Denies: Hx Atrial Fibrillation, Hx Congestive Heart Failure, Hx DVT, Hx Pulmonary Embolism Pulmonary Medical History: Denies: Hx Asthma, Hx COPD Neurological Medical History: Denies: Hx Seizures Endocrine Medical History: Denies: Hx Diabetes Mellitus Type 1, Hx Diabetes Mellitus Type 2, Hx Hyperthyroidism, Hx Hypothyroidism Renal/ Medical History: Denies: Hx Peritoneal Dialysis GI Medical History: Denies: Hx Cirrhosis, Hx Crohn's Disease, Hx Hepatitis, Hx Ulcerative Colitis Musculoskeletal Medical History: Reports Hx Arthritis - 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, Denies Hx Fibromyalgia, Denies Hx Gout Skin Medical History: Denies Hx Eczema, Denies Hx Psoriasis Psychiatric Medical History: Denies: Hx Depression Infectious Medical History: Denies: Hx Hepatitis Past Surgical History: Reports: Hx Cardiac Catheterization, Hx Cardiac Surgery - stents placed, Hx Coronary Stent - X 4, Hx Orthopedic Surgery - right hip replacement, metal plate in right femur, Other - Glaucoma surgery, bilateral cataract surgery - Immunizations Immunizations up to date: Yes Hx Diphtheria, Pertussis, Tetanus Vaccination: Yes Physical Exam - Vital signs Vitals: Temp Pulse Resp BP Pulse Ox 98 F 87 18 133/68 H 97 07/26/19 16:03 07/26/19 16:03 07/26/19 16:03 07/26/19 16:03 07/26/19 16:03 - Notes Notes: Patient was brought in by paramedics with a syncopal episode. Daiana says they last spoke to her about 3 hours. They went to check on her and sent over in the chair unresponsive. When medics arrived she was minimally responsive. She is now alert and oriented x4. History of falls. She has had no headaches fever cough chest pain shortness of breath nausea vomiting abdominal pain or diarrhea. Says she did have breakfast this morning last dose of Zanaflex was 2 days ago and last dose of Ultram was yesterday any tongue biting or incontinence His medical history is significant for coronary artery disease with stents hypertension chronic neck pain. Social history she does smoke but does not drink Review of systems pertinent positives and negatives in HPI otherwise all the systems were reviewed and acutely negative PHYSICIAN EXAM -vital signs are noted triage note and note from triage reviewed GENERAL: Well-appearing, well-nourished and in __no acute distress____ HEAD: Atraumatic, normocephalic. EYES: Pupils equal round and reactive to light, extraocular movements intact, sclera anicteric, conjunctiva are normal. ENT: nares patent, oropharynx clear without exudates. Moist mucous membranes. No lesions on the tongue NECK: supple without lymphadenopathy LUNGS: Breath sounds clear to auscultation bilaterally and equal. No wheezes rales or rhonchi. HEART: Regular rate and rhythm without murmurs ABDOMEN: Soft, nontender, normoactive bowel sounds. EXTREMITIES: No deformity, no edema. No palpable cords NEUROLOGICAL: Alert and oriented x4. Cranial nerves he has symmetrical smile facies and shoulder shrug. His motor strength is 5/5 bilaterally in the upper and lower extremities. Toes downgoing. Sensation is intact to light touch is a negative Romberg PSYCH: Normal mood, normal affect. SKIN: Warm, Dry, normal turgor, no rashes or lesions noted. BACK-nontender in the midline Differential includes arrhythmia seizure unintentional overdose dehydration Course - Re-evaluation Re-evalutation: 07/26/19 20:38 ED patient is remained stable Medical decision making patient presents with episode of unresponsiveness. Co ncerned that this was possible unintentional overdose or seizure with elevated prolactin. And patient will need admission to the hospital have consulted hospitalist - Vital Signs Vital signs: Temp Pulse Resp BP Pulse Ox 98 F 87 23 H 150/73 H 95 07/26/19 16:03 07/26/19 16:03 07/26/19 18:01 07/26/19 18:01 07/26/19 18:01 - Laboratory Result Diagrams: 07/26/19 16:10 07/26/19 16:10 Laboratory results interpreted by me: 07/26/19 07/26/19 07/26/19 16:10 16:10 19:07 MCV 99 H RDW 16.9 H Carbon Dioxide 33 H Total Bilirubin 1.4 H Creatine Kinase < 20 L Prolactin 23.6 H Salicylates Acetaminophen 07/26/19 07/26/19 19:07 19:07 MCV RDW Carbon Dioxide Total Bilirubin Creatine Kinase < 20 L Prolactin Salicylates < 1.0 L Acetaminophen < 10 L - EKG Interpretation by Me Additional EKG results interpreted by me: 07/26/19 18:51 2 EKG shows a normal sinus rhythm with a normal axis and QRS. Nonspecific changes have increased in [place] possible hyperacute T waves. Repeat EKG shows again normal sinus rhythm with no significant change from the first hyperacute T waves have improved normal QT interval Discharge - Discharge Clinical Impression: Altered mental status Qualifiers: Altered mental status type: unspecified Qualified Code(s): R41.82 - Altered mental status, unspecified Disposition: ADMITTED INPATIENT Unit Admitted: Telemetry Referrals: MISAEL MACE FNP [Primary Care Provider] - Follow up as needed
[2019-07-26 18:37] LABS: APPEARANCE,URINE CLEAR; BILIRUBIN,URINE NEGATIVE (NEGATIVE); COLOR,URINE YELLOW; GLUCOSE, URINE NEGATIVE (NEGATIVE); KETONES,URINE NEGATIVE (NEGATIVE); LEUKOCYTE ESTERASE,URINE NEGATIVE (NEGATIVE); NITRITE,URINE NEGATIVE (NEGATIVE); PROTEIN,URINE NEGATIVE (NEGATIVE); UROBILINOGEN,URINE NEGATIVE mg/dL (<2.0)
--- NOTE | 2019-07-26 18:42 | RADIOLOGY REPORT (SQ) ---
EXAM DESCRIPTION: CHEST SINGLE VIEW COMPLETED DATE/TIME: 07/26/2019 6:15 pm REASON FOR STUDY: Syncope COMPARISON: AP chest 03/28/2019 EXAM PARAMETERS: NUMBER OF VIEWS: One view. TECHNIQUE: Single frontal radiographic view of the chest acquired. RADIATION DOSE: NA LIMITATIONS: None. FINDINGS: LUNGS AND PLEURA: No opacities, masses or pneumothorax. No pleural effusion. MEDIASTINUM AND HILAR STRUCTURES: No masses. Contour normal. HEART AND VASCULAR STRUCTURES: No cardiomegaly. Left coronary stent. BONES: Midthoracic kyphoplasty HARDWARE: None in the chest. OTHER: No other significant finding. IMPRESSION: NO ACUTE RADIOGRAPHIC FINDING IN THE CHEST. TECHNICAL DOCUMENTATION: JOB ID: [id number] [employer]- All Rights Reserved Reading location - IP/workstation name: [email or web address]
--- NOTE | 2019-07-26 18:47 | RADIOLOGY REPORT (SQ) ---
EXAM DESCRIPTION: CT HEAD WITHOUT COMPLETED DATE/TIME: 07/26/2019 6:34 pm REASON FOR STUDY: Syncope COMPARISON: 03/28/2019 CT brain MRI brain 03/29/2019 TECHNIQUE: Axial images acquired through the brain without intravenous contrast. Images reviewed wi th bone, brain and subdural windows. Additional sagittal and coronal reconstructions were generated. Images stored on PACS. All CT scanners at this facility use dose modulation, iterative reconstruction, and/or weight based d osing when appropriate to reduce radiation dose to as low as reasonably achievable (ALARA). [facility]: Dose Right [facility]: CareDose [facility]: Dose Right [facility]: Teradose 4D [facility]: [employer] RADIATION DOSE: CT Rad equipment meets quality standard of care and radiation dose reduction techniq ues were employed. CTDIvol: 53.2 mGy. DLP: 937 mGy-cm. mGy. LIMITATIONS: None. FINDINGS: VENTRICLES: Normal size and contour. CEREBRUM: No masses. No hemorrhage. No midline shift. No evidence for acute infarction. Age-approp riate spotty low attenuation in the bifrontal and biparietal white matter from chronic small vessel d isease CEREBELLUM: No masses. No hemorrhage. No alteration of density. No evidence for acute infarction. EXTRAAXIAL SPACES: No fluid collections. No masses. ORBITS AND GLOBE: Post cataract surgery bilaterally CALVARIUM: No fracture. PARANASAL SINUSES: No fluid or mucosal thickening. SOFT TISSUES: No mass or hematoma. OTHER: No other significant finding. IMPRESSION: No acute findings EVIDENCE OF ACUTE STROKE: NO. COMMENT: Quality ID # [id number]: Final reports with documentation of one or more dose reduction techniques (e.g., Automated exposure control, adjustment of the mA and/or kV according to patient size, use of iterative reconstruction technique) TECHNICAL DOCUMENTATION: JOB ID: [id number] [employer]- All Rights Reserved Reading location - IP/workstation name: [email or web address]
[2019-07-26 19:39] LABS: ACETAMINOPHEN < 10 ug/mL (10-30); CREATINE KINASE < 20 U/L (30-135)
[2019-07-26] MEDS ORDERED: ACETAMINOPHEN 325 MG TABLET PO ONE (20:35)
[2019-07-26] MEDS ORDERED: MAGNESIUM HYDROXIDE SUSP 30 ML UDCUP PO PRN (21:12)
[2019-07-26] MEDS ORDERED: MAG HYDROX/AL HYDROX/SIMETH SUSP 30 ML UDCUP PO PRN (21:12)
[2019-07-26] MEDS ORDERED: ONDANSETRON HCL INJ/PF 4 MG/2 ML SDV IV PRN (21:12)
[2019-07-26] MEDS ORDERED: HYDRALAZINE HCL INJ/PF 20 MG/1 ML SDV IV PRN (21:18)
[2019-07-26] MEDS ORDERED: NICOTINE 21 MG/24 HR PATCH.TD24 TD PRN (21:18)
[2019-07-26] MEDS ORDERED: ACETAMINOPHEN 325 MG TABLET PO PRN (21:18)
[2019-07-26] MEDS ORDERED: GUAIFENESIN SYRP 200 MG/10 ML UDC PO PRN (21:18)
[2019-07-26] MEDS ORDERED: FAMOTIDINE 20 MG TABLET PO SCH (22:00)
--- NOTE | 2019-07-26 22:37 | EKG REPORT ---
SEVERITY:- NORMAL ECG - SINUS RHYTHM : Confirmed by: Joni Ocasio 26-Jul-2019 22:36:31
--- NOTE | 2019-07-26 22:41 | RADIOLOGY REPORT (SQ) ---
EXAM DESCRIPTION: [employer]Lex: MR BRAIN WITHOUT THEN WITH IV CONTRAST CLINICAL HISTORY: 89 years Female; Possible seizure TECHNIQUE: Routine protocol MRI brain with and without intravenous contrast. COMPARISON: CT 07/26/2019 FINDINGS: No diffusion restriction. There are scattered focal and confluent areas of increased T2 signal in the cerebral white matter bilaterally, nonspecific but typical for moderate chronic small vessel disease. No hemosiderin deposition. No enhancing intracranial masses. There is normal enhancement in the major dural venous sinuses. Ventricles and cisterns are preserved. No midline shift. Both globes are aphakic. No retro-orbital mass or edema. Calvarial marrow is normal. Paranasal sinuses are clear. Normal flow-voids are seen in the major intracranial arteries. IMPRESSION: 1. No acute infarct or other acute intracranial findings. 2. Mild to moderate chronic ischemic white matter changes 3. No intracranial masses
[2019-07-26] MEDS: ATORVASTATIN CALCIUM 80 MG TABLET PO SCH (23:43)
[2019-07-26] MEDS: FAMOTIDINE 20 MG TABLET PO SCH (23:43)
[2019-07-26] MEDS: HEPARIN SOD (PORCINE) 5,000 UNIT/ML 1 ML VIAL SUBCUT SCH (23:43)
--- NOTE | 2019-07-27 01:02 | PDOC H&P ---
History of Present Illness Admission Date/PCP: 07/26/2019 20:45 ALVA IBARRA Patient complains of: Altered mental statusunresponsive History of Present Illness: JENS GOLDSTEIN is a 89 year old female who presented to the emergency room via EMS due to acutely altered mental status with unresponsiveness. The patient was found unresponsive in her home by family members, being noted as sitting slumped over in a chair and not responding to verbal or tactile stimuli. The family called EMS and the patient was minimally responsive at the time of their arrival. By the time patient arrived to the hospital she was fully alert and responsive. She admitted mild bilateral visual blurriness at the time of her arrival in the emergency room. She denies any additional associated or accompanying signs and symptoms and was unaware of her unresponsiveness until after the arrival of the EMS crew. She denies any symptoms preceding the event and has no other associated or accompanying signs and symptoms postevent. She denies prior similar episodes. She has not identified any aggravating or ameliorating factors for her unresponsiveness. In the emergency room she was found to have an elevated prolactin level with the remainder of her evaluation being unremarkable. She was noted to have used Ultram for pain control yesterday. Patient was subsequently admitted to telemetry for further evaluation and treatment. Past Medical History Cardiac Medical History: Reports: Coronary Artery Disease, Myocardial Infarction - x2, Hyperlipidema, Hypertension Denies: Atrial Fibrillation, Congestive Heart Failure, DVT, Pulmonary Embolism Pulmonary Medical History: Denies: Asthma, Chronic Obstructive Pulmonary Disease (COPD) EENT Medical History: Reports: Cataracts - Bilateral Denies: Ears - Hearing aids Neurological Medical History: Denies: Hemorrhagic CVA, Ischemic CVA, Seizures Endocrine Medical History: Reports: Obesity Denies: Diabetes Mellitus Type 1, Diabetes Mellitus Type 2, Hyperthyroidism, Hypothyroidism Renal/ Medical History: Denies: Chronic Kidney Disease, Nephrolithiasis Malignancy Medical History: Reports: None GI Medical History: Denies: Cirrhosis, Crohn's Disease, Hepatitis, Ulcerative Colitis Musculoskeltal Medical History: Reports: Arthritis - 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 Denies: Fibromyalgia, Gout Skin Medical History: Denies: Eczema, Psoriasis Psychiatric Medical History: 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 Dependency Denies: Alcohol Dependency, Depression, Substance Abuse Traumatic Medical History: Reports: None Hematology: Denies: Anemia, Bleeding Tendencies Infectious Medical History: Reports: None Past Surgical History Past Surgical History: Reports: Cardiac Catheterization, Coronary Stent - X 4, Orthopedic Surgery - right hip replacement, metal plate in right femur, Other - Glaucoma surgery, bilateral cataract surgery Social History Information Source: Patient Lives with: Alone - Daughter lives in close proximity Smoking Status: Former Smoker Electronic Cigarette use?: No Frequency of Alcohol Use: None Hx Recreational Drug Use: No Drugs: None Hx Prescription Drug Abuse: No - Advance Directive Resuscitation Status: Full Code Surrogate healthcare decision maker:: Chuyita Gutierrez Family History Family History: Arthritis, CAD, Other - Polycythemia, congestive heart failure. denies: CVA, DM, Hypertension, Malignancy Parental Family History Reviewed: Yes Children Family History Reviewed: No Sibling(s) Family History Reviewed.: Yes Medication/Allergy Home Medications: Atorvastatin Calcium [Lipitor 80 mg Tablet] 80 mg PO QHS 07/26/19 Carvedilol [Coreg] 1 tab PO DAILY 07/26/19 Furosemide [Lasix 20 mg Tablet] 20 mg PO QAM 07/26/19 Valacyclovir HCl [Valacyclovir] 1,000 mg PO DAILY 07/26/19 Allergies/Adverse Reactions: No Known Allergies Allergy (Verified 03/28/19 22:22) Review of Systems Constitutional: ABSENT: chills, fever(s) Eyes: PRESENT: visual disturbances - Hazy vision. ABSENT: other - Eye pain Ears: ABSENT: hearing changes, other - Ear pain Nose, Mouth, and Throat: ABSENT: headache(s), mouth pain, sore throat Cardiovascular: ABSENT: chest pain, palpitations Respiratory: ABSENT: cough, dyspnea Gastrointestinal: ABSENT: abdominal pain, constipation, diarrhea, nausea, vomiting Genitourinary: ABSENT: dysuria, hematuria Musculoskeletal: PRESENT: back pain - Chronic back and neck pain. ABSENT: joint swelling, muscle weakness Integumentary: ABSENT: pruritus, rash Neurological: PRESENT: as per HPI. ABSENT: confusion, convulsions, focal weakness, memory loss, syncope Psychiatric: ABSENT: anxiety, depression Endocrine: ABSENT: cold intolerance, heat intolerance Hematologic/Lymphatic: ABSENT: easy bleeding, easy bruising Allergic/Immunologic: ABSENT: seasonal rhinorrhea Physical Exam Vital Signs: Temp Pulse Resp BP Pulse Ox 98 F 87 23 H 150/73 H 95 07/26/19 16:03 07/26/19 16:03 07/26/19 18:01 07/26/19 18:01 07/26/19 18:01 Intake & Output 07/24/19 07/25/19 07/26/19 23:59 23:59 23:59 Intake Total 500 Balance 500 Weight 68.039 kg General appearance: PRESENT: no acute distress, cooperative, obese Head exam: PRESENT: atraumatic, normocephalic Eye exam: PRESENT: conjunctiva pink, EOMI. ABSENT: conjunctival injection, PE RRLA - Anisocoria following bilateral cataract surgery, scleral icterus Ear exam: PRESENT: normal external ear exam. ABSENT: bleeding, drainage Mouth exam: PRESENT: dry mucosa, neck supple Neck exam: ABSENT: thyromegaly, tracheal deviation Respiratory exam: PRESENT: clear to auscultation benson, symmetrical, unlabored Cardiovascular exam: ABSENT: clicks, gallop, rubs Pulses: PRESENT: normal radial pulses, normal dorsalis pedis pul Vascular exam: PRESENT: normal capillary refill. ABSENT: pallor GI/Abdominal exam: PRESENT: normal bowel sounds, soft Rectal exam: PRESENT: deferred Extremities exam: ABSENT: joint swelling, pedal edema Musculoskeletal exam: ABSENT: deformity, dislocation Neurological exam: PRESENT: alert, oriented to person, oriented to place, oriented to time, oriented to situation, CN II-XII grossly intact. ABSENT: motor sensory deficit Psychiatric exam: PRESENT: appropriate affect, normal mood Skin exam: PRESENT: dry, intact, warm. ABSENT: jaundice, rash, urticaria Results Laboratory Results: 07/26/19 16:10 07/26/19 16:10 07/26/19 07/26/19 07/26/19 16:10 16:10 18:08 WBC 6.0 RBC 4.16 Hgb 13.9 Hct 41.1 MCV 99 H MCH 33.4 MCHC 33.9 RDW 16.9 H Plt Count 178 Seg Neutrophils % 60.8 Sodium 139.0 Potassium 4.1 Chloride 100 Carbon Dioxide 33 H Anion Gap 6 BUN 15 Creatinine 0.87 Est GFR ( Amer) > 60 Glucose 92 Calcium 9.8 Total Bilirubin 1.4 H AST 23 Alkaline Phosphatase 97 Total Protein 6.8 Albumin 3.6 Urine Color YELLOW Urine Appearance CLEAR Urine pH 6.0 Ur Specific Brooks 1.010 Urine Protein NEGATIVE Urine Glucose (UA) NEGATIVE Urine Ketones NEGATIVE Urine Blood NEGATIVE Urine Nitrite NEGATIVE Ur Leukocyte Esterase NEGATIVE Urine WBC (Auto) 0 Urine RBC (Auto) 1 07/26/19 07/26/19 07/26/19 16:10 16:10 19:07 Creatine Kinase < 20 L < 20 L CK-MB (CK-2) 0.47 Troponin I < 0.012 Impressions: Chest X-Ray 07/26/19 17:51 IMPRESSION: NO ACUTE RADIOGRAPHIC FINDING IN THE CHEST. Head CT 07/26/19 17:51 IMPRESSION: No acute findings EVIDENCE OF ACUTE STROKE: NO. Assessment and Plan - Diagnosis (1) Altered mental status Qualifiers: Altered mental status type: unspecified Qualified Code(s): R41.82 - Altered mental status, unspecified Is this a current diagnosis for this admission?: Yes (2) Blurry vision, bilateral Is this a current diagnosis for this admission?: Yes (3) Hypertension Qualifiers: Hypertension type: essential hypertension Qualified Code(s): I10 - Essential (primary) hypertension Is this a current diagnosis for this admission?: Yes (4) Hyperlipidemia Qualifiers: Hyperlipidemia type: unspecified Qualified Code(s): E78.5 - Hyperlipidemia, unspecified Is this a current diagnosis for this admission?: Yes (5) Coronary artery disease Qualifiers: Coronary Disease-Associated Artery/Lesion type: [place] artery [place] vs. transplanted heart: [place] heart Associated angina: without angina Qualified Code(s): I25.10 - Atherosclerotic heart disease of [place] coronary artery without angina pectoris Is this a current diagnosis for this admission?: Yes (6) Obesity (BMI 30-39.9) Is this a current diagnosis for this admission?: Yes - Plan Summary Summary: Patient will be admitted to the medical floor in a telemetry bed. She received usual supportive and symptomatic cares. Neuro checks will be performed every 4 hours. An MRI of the head and a bilateral carotid Doppler study will be obtained. An EEG will be obtained as a possible seizure related to use of Ultram is in the differential diagnosis. The patient will be continued on her usual home medications for her chronic medical illnesses as appropriate. A tele-neurology consultation may be obtained when/if available. She will be observed closely for any evidence of seizure activity and any recurrence of seizures she will receive Ativan 2 mg IV every 1 hour as needed for control of seizure activity. - Time Time Spent with patient: 25-34 minutes Smoking Cessation Education: 3 to 10 minutes Medications reviewed and adjusted accordingly: Yes Anticipated discharge: Home - Inpatient Certification Based on my medical assessment, after consideration of the patient's comorbidities, presenting symptoms, or acuity I expect that the services needed warrant INPATIENT care.: Yes I certify that my determination is in accordance with my understanding of Medicare's requirements for reasonable and necessary INPATIENT services [42 CFR 412.3e].: Yes Medical Necessity: Significant Comorbidiites Make Outpatient Treatment Too Risky, Need Close Monitoring Due to Risk of Patient Decompensation, Need For Continuous Telemetry Monitoring, Need for Neurological Checks, Risk of Complication if Not Cared For in Hospital
[2019-07-27] MEDS: HEPARIN SOD (PORCINE) 5,000 UNIT/ML 1 ML VIAL SUBCUT SCH ×3 (05:45→22:07)
[2019-07-27 06:20] LABS: HEMATOCRIT 40.2 % (36.0-47.0); HEMOGLOBIN 13.7 g/dL (12.0-15.5); MEAN CORPUSCULAR HEMOGLOBIN 33.8 pg (27.0-33.4); MEAN CORPUSCULAR HGB CONC 34.2 g/dL (32.0-36.0); MEAN CORPUSCULAR VOLUME 99 fl (80-97); PLATELET COUNT 161 10^3/uL (150-450); RED BLOOD COUNT 4.07 10^6/uL (3.72-5.28); RED CELL DISTRIBUTION WIDTH 16.9 % (11.5-14.0); WHITE BLOOD COUNT 5.1 10^3/uL (4.0-10.5)
[2019-07-27 06:54] LABS: ALBUMIN 3.3 g/dL (3.5-5.0); ALKALINE PHOSPHATASE 87 U/L (38-126); ANION GAP 8 (5-19); ASPARTATE AMINO TRANSFERASE 21 U/L (14-36); BILIRUBIN,DIRECT 0.2 mg/dL (0.0-0.4); BILIRUBIN,TOTAL 1.5 mg/dL (0.2-1.3); BLOOD UREA NITROGEN 14 mg/dL (7-20); CALCIUM 9.2 mg/dL (8.4-10.2); CARBON DIOXIDE 30 mmol/L (22-30); CHLORIDE 104 mmol/L (98-107); CHOLESTEROL 119.16 mg/dL (0-200); GLUCOSE 86 mg/dL (75-110); POTASSIUM 3.8 mmol/L (3.6-5.0); TOTAL PROTEIN 6.2 g/dL (6.3-8.2); TRIGLYCERIDES 100 mg/dL (<150)
[2019-07-27 07:05] LABS: DIRECT LDL 62 mg/dL (<100)
[2019-07-27] MEDS ORDERED: METOPROLOL SUCCINATE 25 MG TAB.SR.24H PO SCH (10:00)
[2019-07-27] MEDS: ASPIRIN 81 MG TABLET, ENT COATED PO SCH (10:44)
[2019-07-27] MEDS: DOCUSATE SODIUM 100 MG CAPSULE PO SCH ×2 (10:44→18:48)
[2019-07-27] MEDS: CHOLECALCIFEROL (D3) 1,000 UNIT (25 MCG) TABLET PO SCH (10:44)
--- NOTE | 2019-07-27 11:28 | EKG REPORT ---
SEVERITY:- BORDERLINE ECG - SINUS RHYTHM BORDERLINE T ABNORMALITIES, INFERIOR LEADS : Confirmed by: Joni Ocasio 27-Jul-2019 11:27:25
[2019-07-27] MEDS ORDERED: HYDRALAZINE HCL INJ/PF 20 MG/1 ML SDV IV PRN (14:02)
--- NOTE | 2019-07-27 14:35 | PDOC PROGRESS REPORT ---
Subjective Progress Note for:: 07/27/19 Subjective:: The patient is an 89-year-old female with a past medical history of [place] x2, CAD, hyperlipidemia, hypertension, obesity, chronic back pain, and tobacco dependence who was admitted 07/26/2019 for altered mental status. The patient was seen on morning rounds with her daughter present. She is found resting in bed, comfortably, on room air. She is alert and oriented x4. She does not recall most of the events leading up to her emergency department visit. She can recall looking in the refrigerator and noting that her vision was blurry. She remembers feeling unwell and sitting down but cannot recall anything after that. Patient's daughter reports that she was found sometime within the following 2 hours, slumped over in her chair. Daughter reports that she was arousable, but confused. By the time she arrived to the ED, she was fully awake and at her baseline. She denies headache, blurred vision, fever/chills, chest pain, palpitations, dyspnea, orthopnea, abdominal pain, nausea and vomiting. They report 2 prior episodes of similar symptoms; though improved more rapidly. They are concerned about the frequency w/o known cause. Otherwise, they have no new questions or concerns. No concerns per nursing. Reason For Visit: ALTERED MENTAL STATUS-UNRESPONSIVE Physical Exam Vital Signs: Temp Pulse Resp BP Pulse Ox 97.5 F 68 16 139/64 H 96 07/27/19 12:34 07/27/19 14:00 07/27/19 12:34 07/27/19 12:34 07/27/19 12:34 Intake & Output 07/26/19 07/27/19 07/28/19 06:59 06:59 06:59 Intake Total 500 150 Balance 500 150 Weight 68.039 kg General appearance: PRESENT: no acute distress, cooperative, obese, well- developed, well-nourished Head exam: PRESENT: atraumatic, normocephalic Eye exam: PRESENT: conjunctiva pink, EOMI, PERRLA. ABSENT: scleral icterus Ear exam: PRESENT: normal external ear exam Mouth exam: PRESENT: moist, tongue midline Neck exam: ABSENT: carotid bruit, JVD, lymphadenopathy, thyromegaly Respiratory exam: PRESENT: clear to auscultation benson, symmetrical, unlabored. ABSENT: rales, rhonchi, wheezes Cardiovascular exam: PRESENT: RRR, +S1, +S2. ABSENT: diastolic murmur, rubs, systolic murmur Pulses: PRESENT: normal dorsalis pedis pul Vascular exam: PRESENT: normal capillary refill GI/Abdominal exam: PRESENT: normal bowel sounds, soft. ABSENT: distended, guarding, mass, organolmegaly, rebound, tenderness Rectal exam: PRESENT: deferred Extremities exam: PRESENT: full ROM. ABSENT: calf tenderness, clubbing, pedal edema Musculoskeletal exam: PRESENT: ambulatory Neurological exam: PRESENT: alert, awake, oriented to person, oriented to place, oriented to time, oriented to situation, CN II-XII grossly intact. ABSENT: mot or sensory deficit Psychiatric exam: PRESENT: appropriate affect, normal mood. ABSENT: homicidal ideation, suicidal ideation Skin exam: PRESENT: dry, intact, warm. ABSENT: cyanosis, rash Results Laboratory Results: 07/27/19 05:35 07/27/19 05:35 07/26/19 07/26/19 07/26/19 16:10 16:10 18:08 WBC 6.0 RBC 4.16 Hgb 13.9 Hct 41.1 MCV 99 H MCH 33.4 MCHC 33.9 RDW 16.9 H Plt Count 178 Seg Neutrophils % 60.8 Sodium 139.0 Potassium 4.1 Chloride 100 Carbon Dioxide 33 H Anion Gap 6 BUN 15 Creatinine 0.87 Est GFR ( Amer) > 60 Glucose 92 Calcium 9.8 Magnesium Total Bilirubin 1.4 H AST 23 Alkaline Phosphatase 97 Total Protein 6.8 Albumin 3.6 Triglycerides Cholesterol LDL Cholesterol Direct VLDL Cholesterol HDL Cholesterol TSH Urine Color YELLOW Urine Appearance CLEAR Urine pH 6.0 Ur Specific [place] 1.010 Urine Protein NEGATIVE Urine Glucose (UA) NEGATIVE Urine Ketones NEGATIVE Urine Blood NEGATIVE Urine Nitrite NEGATIVE Ur Leukocyte Esterase NEGATIVE Urine WBC (Auto) 0 Urine RBC (Auto) 1 07/27/19 07/27/19 07/27/19 05:35 05:35 05:35 WBC 5.1 RBC 4.07 Hgb 13.7 Hct 40.2 MCV 99 H MCH 33.8 H MCHC 34.2 RDW 16.9 H Plt Count 161 Seg Neutrophils % Sodium 142.0 Potassium 3.8 Chloride 104 Carbon Dioxide 30 Anion Gap 8 BUN 14 Creatinine 0.87 Est GFR ( Amer) > 60 Glucose 86 Calcium 9.2 Magnesium 2.2 Total Bilirubin 1.5 H AST 21 Alkaline Phosphatase 87 Total Protein 6.2 L Albumin 3.3 L Triglycerides 100 Cholesterol 119.16 LDL Cholesterol Direct 62 VLDL Cholesterol 20.0 HDL Cholesterol 47 TSH 1.33 Urine Color Urine Appearance Urine pH Ur Specific [place] Urine Protein Urine Glucose (UA) Urine Ketones Urine Blood Urine Nitrite Ur Leukocyte Esterase Urine WBC (Auto) Urine RBC (Auto) 07/26/19 07/26/19 07/26/19 16:10 16:10 19:07 Creatine Kinase < 20 L < 20 L CK-MB (CK-2) 0.47 Troponin I < 0.012 07/27/19 07/27/19 07/27/19 00:24 05:35 12:38 Creatine Kinase CK-MB (CK-2) Troponin I < 0.012 < 0.012 < 0.012 Impressions: Chest X-Ray 07/26/19 17:51 IMPRESSION: NO ACUTE RADIOGRAPHIC FINDING IN THE CHEST. Head CT 07/26/19 17:51 IMPRESSION: No acute findings EVIDENCE OF ACUTE STROKE: NO. Head MRI 07/26/19 20:35 IMPRESSION: 1. No acute infarct or other acute intracranial findings. 2. Mild to moderate chronic ischemic white matter changes 3. No intracranial masses Assessment and Plan - Diagnosis (1) Altered mental status Qualifiers: Altered mental status type: unspecified Qualified Code(s): R41.82 - Altered mental status, unspecified Is this a current diagnosis for this admission?: Yes Plan: Resolved prior to arrival to ED. CT and MRI imaging of the head are benign. EKG showed Sinus rhythm. Chemistry evaluation unremarkable including negative troponins x3, normal lipid panel, normal TSH EEG pending Carotid Doppler pending. Echocardiogram pending. Check AM Cortisol Patient is admitted to the medical floor on continuous cardiac telemetry. Resume home medication regiment. Orthostatic blood pressures. PT evaluation. Discharge planning consult. Recommend outpatient event monitoring. (2) Blurry vision, bilateral Is this a current diagnosis for this admission?: Yes Plan: Resolved; secondary to #1. Evaluation management as above. (3) Coronary artery disease Qualifiers: Coronary Disease-Associated Artery/Lesion type: [place] artery [place] vs. transplanted heart: [place] heart Associated angina: without angina Qualified Code(s): I25.10 - Atherosclerotic heart disease of [place] coronary artery w ithout angina pectoris Is this a current diagnosis for this admission?: Yes Plan: Continue daily aspirin and statin therapy. Cardiac diet. (4) Hyperlipidemia Qualifiers: Hyperlipidemia type: unspecified Qualified Code(s): E78.5 - Hyperlipidemia, unspecified Is this a current diagnosis for this admission?: Yes Plan: Cardiac diet. Home dose statin therapy. (5) Hypertension Qualifiers: Hypertension type: essential hypertension Qualified Code(s): I10 - Essential (primary) hypertension Is this a current diagnosis for this admission?: Yes Plan: Continue home dose carvedilol, furosemide Cardiac diet. (6) Obesity (BMI 30-39.9) Is this a current diagnosis for this admission?: Yes Plan: Lifestyle modification dietary discretion advised. - Time Time Spent with patient: 25-34 minutes Medications reviewed and adjusted accordingly: Yes Anticipated discharge: Home with Homehealth Within: within 24 hours
--- NOTE | 2019-07-27 15:24 | NEURO WORKBENCH EEG REPORT ---
EEG Report Patient: Ene Bueno ID: [id number] Referring Doctor: Thom Lucas Date: 07/27/2019 Reason for study: Evaluate Epileptiform activity Medications: Aspirin, Lipitor, Vitamin D, Colace, Pepcid, Guaifenesin, Hydralazine, Toprol XL, Nicotine, Ondansetron History: This is a 89 year old female with a history of CAD, [place] x2, Cardiac stents, Hypercholesterolemia, Glaucoma, Arthritis, and right hip replacement. This EEG was requested for evaluation of epileptiform activity. EEG Interpretation: This EEG was recorded during wakefulness and stage I sleep. The awake EEG is characterized by a well organized background with a well developed and reactive posterior dominant rhythm (PDR) of approximately 9-10 Hz. The remainder of the background consisted of low amplitude beta activity with minimal bi-temporal theta activity. The EEG is symmetric in amplitudes and frequencies. Photic stimulation resulted in no significant photic driving, and there was no epileptiform activity elicited with photic stimulation. Stage I sleep was achieved and characterized by slow rolling eye movements and slowing of the background rhythm. There were bi-temporal (left predominant) wicket spikes noted during stage I sleep (benign). There were no epileptiform abnormalities (no sharp waves and no spikes). There were no seizures. The EKG showed a some arrythmia with a rate of typically 70-80 beats per minute. EEG Impression: This EEG is within normal limits for age. There was no epileptiform activity or seizures. A single normal routine EEG does not rule out the possibility of epilepsy. If there is high clinical suspicion for epilepsy, then additional EEG evaluation should be considered with a sleep-deprived EEG or more prolonged EEG monitoring. Further cardiac evaluation for arrythmia may be considered. INTERPRETING NEUROLOGIST: Reed Walker MD Board certified by the [place] [employer] in Neurology, Clinical Neurophysiology, and Sleep Medicine [facility]
[2019-07-27] MEDS: VALACYCLOVIR HCL 500 MG TABLET PO SCH (18:48)
--- NOTE | 2019-07-27 19:42 | XCELERA REPORT ---
[address] [address] Transthoracic Echocardiogram Report Name: JENS GOLDSTEIN Age: 89 yrs Gender: Female : 1930 Patient Status: Inpatient Patient Location: [address] [place], [place] [address] Study Date: 07/27/2019 03:04 PM History: Hypertension Syncope Height: 55 in Weight: 150 lb BSA: 1.6 m2 Procedure: A complete two-dimensional transthoracic echocardiogram was performed (2D, M-mode, spectral and color flow Doppler). The study was technically difficult with many images being suboptimal in quality. Reason For Study: syncope Previous Evaluation: No previous studies were available. History: HTN. Syncope. Ordering Physician: YANCI RANDALL Performed By: Lesvia Condon Interpretation Summary The study was technically difficult with many images being suboptimal in quality. Left ventricular systolic function is normal. The Ejection Fraction estimate is 60-65% The right ventricle is normal in size and function. There is a mild amount of mitral regurgitation There is no aortic valve stenosis There is a trace amount of tricuspid regurgitation Doppler findings do not suggest pulmonary hypertension. There is no pericardial effusion. MMode/2D Measurements & Calculations RVDd: 2.9 cm LVIDd: 3.1 cm FS: 35.2 % Ao root diam: 2.8 cm IVSd: 0.87 cm LVIDs: 2.0 cm EDV(Teich): 39.2 ml Ao root area: 6.0 cm2 LVPWd: 1.1 cm ESV(Teich): 13.3 ml LA dimension: 3.7 cm EF(Teich): 66.0 % Doppler Measurements & Calculations MV E max adrianne: MV P1/2t max adrianne: Ao V2 max: LV V1 max P.4 cm/sec 83.3 cm/sec 164.4 cm/sec 8.3 mmHg MV A max adrianne: MV P1/2t: 70.1 msec Ao max PG: LV V1 max: 103.0 cm/sec MVA(P1/2t): 3.1 cm2 10.8 mmHg 143.8 cm/sec MV E/A: 0.79 MV dec slope: 347.8 cm/sec2 MV dec time: 0.20 sec PA V2 max: TR max adrianne: MV P1/2t-pr_phl: 65.2 cm/sec 243.0 cm/sec 70.1 msec PA max P.7 mmHgTR max P.6 mmHg Left Ventricle The left ventricle is grossly normal size. There is mild concentric left ventricular hypertrophy. Left ventricular systolic function is normal. The Ejection Fraction estimate is 60-65%. Doppler measurements suggest impaired left ventricular relaxation, which is associated with grade I/IV or mild diastolic dysfunction. No regional wall motion abnormalities noted. Right Ventricle The right ventricle is normal in size and function. Atria The right atrium is normal. The left atrium is moderately dilated. Mitral Valve There is mild mitral leaflet calcification. There is no mitral valve stenosis. There is a mild amount of mitral regurgitation. Aortic Valve The aortic valve is trileaflet. The aortic valve opens well. The aortic valve is sclerotic, but shows no functional abnormality. The aortic valve is mildly calcified. There is no aortic valve stenosis. There is a trace amount of aortic regurgitation. Tricuspid Valve The tricuspid valve is not well visualized, but is grossly normal. There is a trace amount of tricuspid regurgitation. Doppler findings do not suggest pulmonary hypertension. Pulmonic Valve The pulmonic valve is not well visualized. Great Vessels The aortic root is normal size. The inferior vena cava appeared small and collapsed with respiration (RAP 0-5 mmHg). Effusions There is no pericardial effusion. : YANCI RANDALL Anil
[2019-07-27] MEDS: ATORVASTATIN CALCIUM 80 MG TABLET PO SCH (22:07)
[2019-07-27] MEDS: FAMOTIDINE 20 MG TABLET PO SCH (22:07)
[2019-07-28] MEDS: HEPARIN SOD (PORCINE) 5,000 UNIT/ML 1 ML VIAL SUBCUT SCH ×2 (06:57→14:07)
[2019-07-28] MEDS ORDERED: FUROSEMIDE 20 MG TABLET PO SCH (08:00)
[2019-07-28] MEDS: VALACYCLOVIR HCL 500 MG TABLET PO SCH (09:36)
[2019-07-28] MEDS: ASPIRIN 81 MG TABLET, ENT COATED PO SCH (09:36)
[2019-07-28] MEDS: CHOLECALCIFEROL (D3) 1,000 UNIT (25 MCG) TABLET PO SCH (09:36)
[2019-07-28] MEDS: DOCUSATE SODIUM 100 MG CAPSULE PO SCH (09:36)
[2019-07-28] MEDS ORDERED: CARVEDILOL 3.125 MG TABLET PO SCH (10:00)
[2019-07-28] MEDS ORDERED: (PENDING PHARMACY ID) (Valacyclovir Hcl [Valacyclovir] 1,000 MG) PO SCH (10:00)
[2019-07-28 13:29] VITALS: BP 128/78
--- NOTE | 2019-07-28 18:44 | RADIOLOGY REPORT (SQ) ---
EXAM DESCRIPTION: CAROTID DOPPLER COMPLETED DATE/TIME: 07/27/2019 3:12 pm REASON FOR STUDY: Altered mental status, unresponsive COMPARISON: None. TECHNIQUE: Grayscale ultrasound, Doppler velocity and spectra, and color Doppler images acquired of the extra-cranial carotid and vertebral arteries. Images stored on PACS. LIMITATIONS: None. FINDINGS: RIGHT CAROTID CCA Velocities: Within normal limits. ICA Velocities Peak systolic 92 m/s. End diastolic 31 m/s. Proximal ICA/CCA peak systolic ratio 1.5. Spectra normal. Mild coarse echogenic plaque at the carotid bulb. LEFT CAROTID CCA Velocities: Within normal limits. ICA Velocities Peak systolic 95 m/s. End diastolic 4 m/s. Proximal ICA/CCA peak systolic ratio 1.8. Spectra normal. Mild coarse echogenic plaque at the carotid bulb. . VERTEBRAL ARTERIES: Antegrade flow. Normal waveforms. SUBCLAVIAN ARTERIES: No finding. OTHER: No other significant finding. IMPRESSION: Less than 50% stenosis bilateral internal carotid arteries. COMMENT: Quality ID #[id number]: Velocity criteria are extrapolated from the diameter data as defined by t he Society of Radiologists in Ultrasound Consensus Conference. Radiology 2003: 229; 340-346. TECHNICAL DOCUMENTATION: JOB ID: [id number] [employer]- All Rights Reserved Reading location - IP/workstation name: [email or web address]
--- NOTE | 2019-07-29 11:40 | PDOC DISCHARGE SUMMARY ---
Impression - Admit/DC Date/PCP Admission Date/Primary Care Provider: 07/26/19 21:30 ALVA IBARRA Discharge Date: 07/28/19 - Discharge Diagnosis (1) Altered mental status Is this a current diagnosis for this admission?: Yes (2) Blurry vision, bilateral Is this a current diagnosis for this admission?: Yes (3) Coronary artery disease Is this a current diagnosis for this admission?: Yes (4) Hyperlipidemia Is this a current diagnosis for this admission?: Yes (5) Hypertension Is this a current diagnosis for this admission?: Yes (6) Obesity (BMI 30-39.9) Is this a current diagnosis for this admission?: Yes - Additional Information Resuscitation Status: Full Code Discharge Diet: Cardiac Discharge Activity: Activity As Tolerated, Balance Activity w/Rest, Slowly Increase Activity Referrals: BLAIR LEVY MD [ACTIVE STAFF] - (Follow-up within 1-2 weeks for outpatient event monitoring LEFT MESSAGE WITH PROVIDER FOR HOSPITAL FOLLOW UP APPT) MISAEL MACE FNP [Primary Care Provider] - (Follow-up within 1 week LEFT MESSAGE WITH PROVIDER FOR FOLLOW UP APPT) Prescriptions: Nicotine [Nicoderm 21 mg/24 Hr Transderm Patch] 1 each TD DAILYP PRN #30 patch.td24 PRN Reason: Home Medications: Atorvastatin Calcium [Lipitor 80 mg Tablet] 80 mg PO QHS 07/26/19 Carvedilol [Coreg] 1 tab PO DAILY 07/26/19 Furosemide [Lasix 20 mg Tablet] 20 mg PO QAM 07/26/19 Valacyclovir HCl [Valacyclovir] 1,000 mg PO DAILY 07/26/19 Acetaminophen [Tylenol 325 mg Tablet] 650 mg PO Q4HP PRN tablet 07/28/19 Aspirin [Ecotrin 81 mg EC Tablet] 81 mg PO DAILY #0 tabec 07/28/19 Nicotine [Nicoderm 21 mg/24 Hr Transderm Patch] 1 each TD DAILYP PRN #30 patch.td24 07/28/19 History of Present Illiness History of Present Illness: Per H&P by Dr. Lucas: JENS GOLDSTEIN is a 89 year old female who presented to the emergency room via EMS due to acutely altered mental status with unresponsiveness. The patient was found unresponsive in her home by family members, being noted as sitting slumped over in a chair and not responding to verbal or tactile stimuli. The family called EMS and the patient was minimally responsive at the time of their arrival. By the time patient arrived to the hospital she was fully alert and responsive. She admitted mild bilateral visual blurriness at the time of her arrival in the emergency room. She denies any additional associated or accompanying signs and symptoms and was unaware of her unresponsiveness until after the arrival of the EMS crew. She denies any symptoms preceding the event and has no other associated or accompanying signs and symptoms postevent. She denies prior similar episodes. She has not identified any aggravating or ameliorating factors for her unresponsiveness. In the emergency room she was found to have an elevated prolactin level with the remainder of her evaluation being unremarkable. She was noted to have used Ultram for pain control yesterday. Patient was subsequently admitted to telemetry for further evaluation and treatment. Hospital Course Hospital Course: The patient was admitted to the medical floor and monitored on continuous cardiac telemetry; no abnormal rhythms were noted. Patient underwent a thorough evaluation of her syncopal episode: CT and MRI imaging of the head are benign. EKG showed Sinus rhythm. Chemistry evaluation unremarkable including negative troponins x3, normal lipid panel, normal TSH, nml AM cortisol EEG negative for abnormal findings Carotid Doppler negative for hemodynamically significant stenosis Echocardiogram LVEF of 60-65% and otherwise unremarkable. Orthostatic blood presures were also negative. PT evaluation recommend home health PT for home safety evaluation. The patient was discharged home in stable condition, into the care of family, with home health services. At time of discharge, patient is asymptomatic, independently ambulatory and in stable condition. She is advised to discontinue Tramadol as family is concerned this may have contributed to her most recent episode. However, as the patient had two prior episodes this year, we recommend that the patient make arrangements through her PCP or Nursing Educator for outpatient cardiac event monitoring. She is instructed to change positions slowly. She is advised to return to the emergency department as needed for any concerning symptoms. Physical Exam Vital Signs: Temp Pulse Resp BP Pulse Ox 98.0 F 87 18 128/78 H 96 07/28/19 13:22 07/28/19 13:22 07/28/19 13:22 07/28/19 13:22 07/28/19 13:22 Intake & Output 01/09/20 01/10/20 01/11/20 06:59 06:59 06:59 Intake Total 1160 480 Balance 1160 480 Weight 68.5 kg General appearance: PRESENT: no acute distress, cooperative, obese, well- developed, well-nourished Head exam: PRESENT: atraumatic, normocephalic Eye exam: PRESENT: conjunctiva pink, EOMI, PERRLA. ABSENT: scleral icterus Ear exam: PRESENT: normal external ear exam Mouth exam: PRESENT: moist, tongue midline Neck exam: ABSENT: carotid bruit, JVD, lymphadenopathy, thyromegaly Respiratory exam: PRESENT: clear to auscultation benson. ABSENT: rales, rhonchi, wheezes Cardiovascular exam: PRESENT: RRR. ABSENT: diastolic murmur, rubs, systolic murmur Pulses: PRESENT: normal dorsalis pedis pul Vascular exam: PRESENT: normal capillary refill GI/Abdominal exam: PRESENT: normal bowel sounds, soft. ABSENT: distended, guarding, mass, organolmegaly, rebound, tenderness Rectal exam: PRESENT: deferred Extremities exam: PRESENT: full ROM. ABSENT: calf tenderness, clubbing, pedal edema Musculoskeletal exam: PRESENT: ambulatory Neurological exam: PRESENT: alert, awake, oriented to person, oriented to place, oriented to time, oriented to situation, CN II-XII grossly intact. ABSENT: motor sensory deficit Psychiatric exam: PRESENT: appropriate affect, normal mood. ABSENT: homicidal ideation, suicidal ideation Skin exam: PRESENT: dry, intact, warm. ABSENT: cyanosis, rash Results Laboratory Results: WBC 5.1 10^3/uL (4.0-10.5) 07/27/19 05:35 RBC 4.07 10^6/uL (3.72-5.28) 07/27/19 05:35 Hgb 13.7 g/dL (12.0-15.5) 07/27/19 05:35 Hct 40.2 % (36.0-47.0) 07/27/19 05:35 MCV 99 fl (80-97) H 07/27/19 05:35 MCH 33.8 pg (27.0-33.4) H 07/27/19 05:35 MCHC 34.2 g/dL (32.0-36.0) 07/27/19 05:35 RDW 16.9 % (11.5-14.0) H 07/27/19 05:35 Plt Count 161 10^3/uL (150-450) 07/27/19 05:35 Lymph % (Auto) 27.4 % (13-45) 07/26/19 16:10 [place] % (Auto) 8.2 % (3-13) 07/26/19 16:10 Eos % (Auto) 3.0 % (0-6) 07/26/19 16:10 Baso % (Auto) 0.6 % (0-2) 07/26/19 16:10 Absolute Neuts (auto) 3.6 10^3/uL (1.7-8.2) 07/26/19 16:10 Absolute Lymphs (auto) 1.6 10^3/uL (0.5-4.7) 07/26/19 16:10 Absolute Monos (auto) 0.5 10^3/uL (0.1-1.4) 07/26/19 16:10 Absolute Eos (auto) 0.2 10^3/uL (0.0-0.6) 07/26/19 16:10 Absolute Basos (auto) 0.0 10^3/uL (0.0-0.2) 07/26/19 16:10 Seg Neutrophils % 60.8 % (42-78) 07/26/19 16:10 Sodium 142.0 mmol/L (137-145) 07/27/19 05:35 Potassium 3.8 mmol/L (3.6-5.0) 07/27/19 05:35 Chloride 104 mmol/L (98-107) 07/27/19 05:35 Carbon Dioxide 30 mmol/L (22-30) 07/27/19 05:35 Anion Gap 8 (5-19) 07/27/19 05:35 BUN 14 mg/dL (7-20) 07/27/19 05:35 Creatinine 0.87 mg/dL (0.52-1.25) 07/27/19 05:35 Est GFR ( Amer) > 60 (>60) 07/27/19 05:35 Est GFR (MDRD) Non-Af > 60 (>60) 07/27/19 05:35 Glucose 86 mg/dL (75-110) 07/27/19 05:35 Calcium 9.2 mg/dL (8.4-10.2) 07/27/19 05:35 Magnesium 2.2 mg/dL (1.6-2.3) 07/27/19 05:35 Total Bilirubin 1.5 mg/dL (0.2-1.3) H 07/27/19 05:35 Direct Bilirubin 0.2 mg/dL (0.0-0.4) 07/27/19 05:35 Neonat Total Bilirubin Not Reportable 07/27/19 05:35 Neonat Direct Bilirubin Not Reportable 07/27/19 05:35 Neonat Indirect Bili Not Reportable 07/27/19 05:35 AST 21 U/L (14-36) 07/27/19 05:35 ALT 10 U/L (<35) 07/27/19 05:35 Alkaline Phosphatase 87 U/L (38-126) 07/27/19 05:35 Creatine Kinase < 20 U/L (30-135) L 07/26/19 19:07 CK-MB (CK-2) 0.47 ng/mL (<4.55) 07/26/19 16:10 Troponin I < 0.012 ng/mL 07/27/19 12:38 Total Protein 6.2 g/dL (6.3-8.2) L 07/27/19 05:35 Albumin 3.3 g/dL (3.5-5.0) L 07/27/19 05:35 Triglycerides 100 mg/dL (<150) 07/27/19 05:35 Cholesterol 119.16 mg/dL (0-200) 07/27/19 05:35 LDL Cholesterol Direct 62 mg/dL (<100) 07/27/19 05:35 VLDL Cholesterol 20.0 mg/dL (10-31) 07/27/19 05:35 HDL Cholesterol 47 mg/dL (>40) 07/27/19 05:35 TSH 1.33 uIU/mL (0.47-4.68) 07/27/19 05:35 Prolactin 23.6 ng/mL (3.0-18.6) H 07/26/19 19:07 Cortisol AM Sample 18.40 ug/dL (4.46-22.7) 07/28/19 04:16 Urine Color YELLOW 07/26/19 18:08 Urine Appearance CLEAR 07/26/19 18:08 Urine pH 6.0 (5.0-9.0) 07/26/19 18:08 Ur Specific Riner 1.010 07/26/19 18:08 Urine Protein NEGATIVE mg/dL (NEGATIVE) 07/26/19 18:08 Urine Glucose (UA) NEGATIVE mg/dL (NEGATIVE) 07/26/19 18:08 Urine Ketones NEGATIVE mg/dL (NEGATIVE) 07/26/19 18:08 Urine Blood NEGATIVE (NEGATIVE) 07/26/19 18:08 Urine Nitrite NEGATIVE (NEGATIVE) 07/26/19 18:08 Urine Bilirubin NEGATIVE (NEGATIVE) 07/26/19 18:08 Urine Urobilinogen NEGATIVE mg/dL (<2.0) 07/26/19 18:08 Ur Leukocyte Esterase NEGATIVE (NEGATIVE) 07/26/19 18:08 Urine WBC (Auto) 0 /HPF 07/26/19 18:08 Urine RBC (Auto) 1 /HPF 07/26/19 18:08 Squamous Epi Cells Auto <1 /HPF 07/26/19 18:08 Urine Mucus (Auto) RARE /LPF 07/26/19 18:08 Urine Ascorbic Acid NEGATIVE (NEGATIVE) 07/26/19 18:08 Salicylates < 1.0 mg/dL (2.0-20.0) L 07/26/19 19:07 Acetaminophen < 10 ug/mL (10-30) L 07/26/19 19:07 07/26/19 07/27/19 07/27/19 16:10 00:24 05:35 CK-MB (CK-2) 0.47 Troponin I < 0.012 < 0.012 < 0.012 07/27/19 12:38 CK-MB (CK-2) Troponin I < 0.012 Impressions: Chest X-Ray 07/26/19 17:51 IMPRESSION: NO ACUTE RADIOGRAPHIC FINDING IN THE CHEST. Head CT 07/26/19 17:51 IMPRESSION: No acute findings EVIDENCE OF ACUTE STROKE: NO. Head MRI 07/26/19 20:35 IMPRESSION: 1. No acute infarct or other acute intracranial findings. 2. Mild to moderate chronic ischemic white matter changes 3. No intracranial masses Carotid Doppler Study 07/27/19 00:00 IMPRESSION: Less than 50% stenosis bilateral internal carotid arteries. Plan Plan of Treatment: PAtient is discharged to home in stable condition. She is advised to follow up with her primary care provider. She has also been provided a cardiology referral to Dr. Levy. Recommend the patient obtain a 30 day outpatient event monitor for further evaluation of her syncopal episodes. Patient and daughter have been advised that either her PCP or cardiology can assist with obtaining event monitoring. She is instructed to continue her medications as prescribed. Drink plenty of water and eat a heart healthy diet. She is instruccted to return to the emergency department as needed for concerning symptoms. Time Spent: Greater than 30 Minutes Stroke Is this a Stroke Patient?: No Acute Heart Failure - Is this a Heart Failure Patient?: No
== END 2019-07-28 13:50 | disposition home or self-care (01) ==
LOC: ER 15:46 → EH 21:30 → INTOOBSV 21:30 → EH 07-27 04:50 → 5TH 07-27 08:39 → 4N 07-27 14:28
PROVIDERS: ADMIT Emergency Medicine; ATTEND Emergency Medicine
DX: R41.82 Altered mental status, unspecified (principal); H53.8 Other visual disturbances; I25.10 Atherosclerotic heart disease of native coronary artery without angina pectoris; E78.5 Hyperlipidemia, unspecified; I10 Essential (primary) hypertension; E66.9 Obesity, unspecified; E22.1 Hyperprolactinemia; R55 Syncope and collapse; H57.02 Anisocoria; H40.9 Unspecified glaucoma; Z60.2 Problems related to living alone; I25.2 Old myocardial infarction; Z68.39 Body mass index [BMI] 39.0-39.9, adult; Z98.890 Other specified postprocedural states; Z87.891 Personal history of nicotine dependence; Z95.5 Presence of coronary angioplasty implant and graft; Z82.49 Family history of ischemic heart disease and other diseases of the circulatory system; Z79.899 Other long term (current) drug therapy; Z79.82 Long term (current) use of aspirin; Z96.641 Presence of right artificial hip joint; Z91.81 History of falling
CPT/HCPCS: 95819 ×2; 93005; 99285; 96360; 36415 ×3; 82553; 82550; 83735; 80307 ×2; 84443; 85025; 85027; 80053 ×2; 81001; 84484 ×2; 82533; 84146; 80061; 93306; 93880; 70553; 71045; 70450; 93010; 97530; 97162; 97166; A9270 ×16; J1644 ×3; J3490 ×3; J7040

== ENCOUNTER 2019-07-29 18:06 | Emergency (ER) | payer MEDICARE, BC, MEDICAID ==
[2019-07-29 19:12] LABS: ABSOLUTE EOSINOPHILS # (AUTO) 0.2 10^3/uL (0.0-0.6); ABSOLUTE LYMPHOCYTES (AUTO) 1.6 10^3/uL (0.5-4.7); ABSOLUTE MONOCYTES (AUTO) 0.4 10^3/uL (0.1-1.4); ABSOLUTE NEUT (AUTO) 4.9 10^3/uL (1.7-8.2); BASOPHILS % (AUTO) 0.2 % (0-2); EOSINOPHILS % (AUTO) 2.3 % (0-6); HEMATOCRIT 46.3 % (36.0-47.0); HEMOGLOBIN 15.6 g/dL (12.0-15.5); LYMPHOCYTES % (AUTO) 22.3 % (13-45); MEAN CORPUSCULAR HEMOGLOBIN 33.5 pg (27.0-33.4); MEAN CORPUSCULAR HGB CONC 33.6 g/dL (32.0-36.0); MEAN CORPUSCULAR VOLUME 100 fl (80-97); PLATELET COUNT 192 10^3/uL (150-450); RED BLOOD COUNT 4.65 10^6/uL (3.72-5.28); RED CELL DISTRIBUTION WIDTH 17.1 % (11.5-14.0); SEGMENTED NEUTROPHILS % (AUTO) 69.2 % (42-78); TOTAL CELLS COUNTED % (AUTO) 100 %; WHITE BLOOD COUNT 7.2 10^3/uL (4.0-10.5)
[2019-07-29 19:57] LABS: ALBUMIN 3.8 g/dL (3.5-5.0); ALKALINE PHOSPHATASE 98 U/L (38-126); ANION GAP 8 (5-19); ASPARTATE AMINO TRANSFERASE 48 U/L (14-36); BILIRUBIN,DIRECT 0.2 mg/dL (0.0-0.4); BLOOD UREA NITROGEN 20 mg/dL (7-20); CALCIUM 9.7 mg/dL (8.4-10.2); CARBON DIOXIDE 31 mmol/L (22-30); CHLORIDE 103 mmol/L (98-107); GLUCOSE 102 mg/dL (75-110); POTASSIUM 3.8 mmol/L (3.6-5.0); TOTAL PROTEIN 6.9 g/dL (6.3-8.2)
[2019-07-29 21:13] LABS: APPEARANCE,URINE SLIGHTLY-CLOUDY; BILIRUBIN,URINE NEGATIVE (NEGATIVE); COLOR,URINE YELLOW; GLUCOSE, URINE NEGATIVE (NEGATIVE); KETONES,URINE NEGATIVE (NEGATIVE); LEUKOCYTE ESTERASE,URINE MODERATE (NEGATIVE); NITRITE,URINE NEGATIVE (NEGATIVE); PROTEIN,URINE NEGATIVE (NEGATIVE); UROBILINOGEN,URINE NEGATIVE mg/dL (<2.0)
--- NOTE | 2019-07-29 21:52 | ER Document Report ---
ED General - General Chief Complaint: Altered Mental Status Stated Complaint: ALTERED MENTAL STATUS Time Seen by Provider: 07/29/19 20:54 Primary Care Provider: MISAEL MACE FNP [Primary Care Provider] - Follow up as needed Notes: 89-year-old female brought to the emergency department for increased sleepiness and intermittent disorientation. Patient was apparently discharged from the hospital yesterday after having been hospitalized for several episodes of unresponsiveness and disorientation. Today the patient's son-in-law went over to her house to check on her and she was asleep and difficult to awaken, when she was finally awakened she was mostly acting like her self however when the grandson went over to check on her shortly thereafter she was again very difficult to awaken and then when she woke up she was confused, did not know where she was or with whom she was speaking and was confused and much sleepier than usual, going back to sleep very quickly. Currently patient has no complaints, states that she is only here because "they think I am not acting normal." Patient's previous hospitalization suspected seizures versus cardiac arrhythmia causing these episodes of intermittent disorientation. Patient has therefore stopped her Ultram and has an appointment with Dr. Vijay Block on Thursday to have an event monitor placed. TRAVEL OUTSIDE OF THE [place] IN LAST 30 DAYS: No - Related Data Allergies/Adverse Reactions: No Known Allergies Allergy (Verified 03/28/19 22:22) Home Medications: has list Past Medical History - General Information source: Patient, Relative - Social History Smoking Status: Former Smoker Chew tobacco use (# tins/day): No Frequency of alcohol use: None Drug Abuse: None Family History: Arthritis, CAD, Other - Polycythemia, congestive heart failure. denies: CVA, DM, Hypertension, Malignancy Patient has suicidal ideation: No Patient has homicidal ideation: No - Past Medical History Cardiac Medical History: Reports: Hx Coronary Artery Disease, Hx Heart Attack - MIx'2 with stents, Hx Hypercholesterolemia, Hx Hypertension Denies: Hx Atrial Fibrillation, Hx Congestive Heart Failure, Hx DVT, Hx Pulmonary Embolism Pulmonary Medical History: Denies: Hx Asthma, Hx COPD Neurological Medical History: Denies: Hx Seizures Endocrine Medical History: Denies: Hx Diabetes Mellitus Type 1, Hx Diabetes Mellitus Type 2, Hx Hyperthyroidism, Hx Hypothyroidism Renal/ Medical History: Denies: Hx Peritoneal Dialysis GI Medical History: Denies: Hx Cirrhosis, Hx Crohn's Disease, Hx Hepatitis, Hx Ulcerative Colitis Musculoskeletal Medical History: Reports Hx Arthritis - 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, Denies Hx Fibromyalgia, Denies Hx Gout Skin Medical History: Denies Hx Eczema, Denies Hx Psoriasis Psychiatric Medical History: Denies: Hx Depression Infectious Medical History: Denies: Hx Hepatitis Past Surgical History: Reports: Hx Cardiac Catheterization, Hx Cardiac Surgery - stents placed, Hx Coronary Stent - X 4, Hx Orthopedic Surgery - right hip replacement, metal plate in right femur, Other - Glaucoma surgery, bilateral cataract surgery - Immunizations Immunizations up to date: Yes Hx Diphtheria, Pertussis, Tetanus Vaccination: Yes Review of Systems - Review of Systems Constitutional: See HPI - Increased fatigue EENT: No symptoms reported Cardiovascular: No symptoms reported. denies: Chest pain, Palpitations, Heart racing, Orthopnea, Dyspnea Respiratory: No symptoms reported Gastrointestinal: No symptoms reported. denies: Diarrhea, Nausea, Vomiting Musculoskeletal: Back pain - Patient has chronic back pain, it has worsened since being in the hospital, she has a follow-up appointment next week to have an MRI and see [facility]. Neurological/Psychological: See HPI, Confusion -: Yes All other systems reviewed and negative Physical Exam - Vital signs Vitals: Resp Pulse Ox 21 H 94 07/29/19 18:19 07/29/19 18:19 Interpretation: Normal - Notes Notes: GENERAL: Alert, interacts well. No acute distress. HEAD: Normocephalic, atraumatic EYES: Pupils equal, round and reactive to light, extraocular movements intact. ENT: Oral mucosa moist, tongue midline. NECK: Full range of motion, supple, trachea midline. LUNGS: Clear to auscultation bilaterally, no wheezes, rales or rhonchi, no respiratory distress. HEART: Regular rate and rhythm, no murmurs, gallops, rubs. ABDOMEN: Soft, nontender, nondistended, bowel sounds present in all 4 quadrants. EXTREMITIES: Moves all 4 extremities spontaneously, no edema, radial and dorsalis pedis pulses 2/4 bilaterally. No cyanosis. NEUROLOGICAL: Alert, initially identified her daughter as her mother, corrected this very quickly, rest of the time she was oriented to person place and time, is able to recall her recent hospitalization, normal speech, no facial droop, biceps and patellar DTRs 2+ bilaterally. PSYCH: Normal mood, normal affect. SKIN: Warm, Dry, normal turgor, no rashes or lesions noted. Course - Re-evaluation Re-evalutation: 07/29/19 23:10 CBC grossly unremarkable, CMP grossly unremarkable, troponin negative, lipase normal, urinalysis shows moderate leukocyte esterase, old labs from prior hospitalization were reviewed, thyroid function was normal. At this point I have advised the patient's daughter to stay with her or have another family member stay with her, it would be quite useful to have somebody witnessed the beginning of 1 of these episodes rather than just seeing her sleeping and seeing her be difficult to wake up. Patient will be treated with Keflex. Patient will follow up with Dr. Block on Thursday as scheduled. They will return sooner for any new or concerning symptoms. - Vital Signs Vital signs: Temp Pulse Resp BP Pulse Ox 98.3 F 96 24 H 122/71 94 07/29/19 18:21 07/29/19 21:05 07/29/19 18:43 07/29/19 21:05 07/29/19 18:43 - Laboratory Result Diagrams: 07/29/19 18:25 07/29/19 18:25 Laboratory results interpreted by me: 07/29/19 07/29/19 07/29/19 18:25 18:25 20:40 Hgb 15.6 H MCV 100 H MCH 33.5 H RDW 17.1 H Carbon Dioxide 31 H AST 48 H Ur Leukocyte Esterase MODERATE H Discharge - Discharge Clinical Impression: Altered mental status Qualifiers: Altered mental status type: transient alteration of awareness Qualified Code(s): R40.4 - Transient alteration of awareness UTI (urinary tract infection) Qualifiers: Urinary tract infection type: acute cystitis Hematuria presence: with hematuria Qualified Code(s): N30.01 - Acute cystitis with hematuria Condition: Stable Disposition: HOME, SELF-CARE Additional Instructions: Please take the Keflex 500 mg twice a day for the next 5 days as directed until it is gone. Please have somebody stay with you so that we can try and have somebody observe have these episodes of confusion and difficulty to awaken start. Please return to the emergency department if she has any seizure activity. Please keep your appointments for the next week especially the appointment with Dr. Block on Thursday for a campus monitor. Prescriptions: Cephalexin Monohydrate [Keflex 500 mg Capsule] 500 mg PO BID 5 Days capsule Referrals: MISAEL MACE FNP [Primary Care Provider] - Follow up as needed
[2019-07-29 23:12] VITALS: BP 108/60
== END 2019-07-29 23:31 | disposition home or self-care (01) ==
LOC: ER 18:06
DX: N30.01 Acute cystitis with hematuria (principal); R41.0 Disorientation, unspecified; R40.4 Transient alteration of awareness; R53.83 Other fatigue; I25.10 Atherosclerotic heart disease of native coronary artery without angina pectoris; I10 Essential (primary) hypertension; Z87.891 Personal history of nicotine dependence
CPT/HCPCS: 36415; 80053; 81001; 83690; 84484; 85025; 99285